=== PATIENT | male | born 1935 | race Caucasian/White ===

== ENCOUNTER 2017-07-26 15:41 | Observation (INO) | payer OTHER ==
[2017-07-26 15:51] VITALS: BMI 30.4
--- NOTE | 2017-07-26 15:53 | PDOC ---
Rapid Medical Evaluation Time Seen by Provider: 07/26/17 15:45 Medical Evaluation: 07/26/17 15:45 Pt. is an 82 y/o M PMH CKD, DM, who presents to the ED with LLE swelling and pain. 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 Currently taking water pills with no relief of symptoms. Pt states had doppler of LLE which was negative for DVT last week. Exam: LLE with 3+ pitting edema. TTP of the calf Orders: labs, ekg, doppler, cxr Pt to proceed to main ED for further evaluation.
[2017-07-26 16:17] LABS: BASO % 0.6 % (0-2.0); EOS % 4.2 % (0-4.5); HEMATOCRIT 28.1 % (35.4-49); HEMOGLOBIN 9.3 GM/dL (11.7-16.9); LYMPH % 22.1 % (8-40); MCH 29.5 pg (25.7-33.7); MCHC 33.2 g/dl (32.0-35.9); MEAN CELL VOLUME 88.8 fl (80-96); MEAN PLT VOLUME 8.5 fl (7.5-11.1); MONO % 9.9 % (3.8-10.2); NEUT % 63.2 % (42.8-82.8); PLATELET COUNT 227 K/MM3 (134-434); RBC 3.17 M/mm3 (4.00-5.60); RDW 15.7 % (11.9-15.9); WHITE BLOOD COUNT 10.1 K/mm3 (4.0-10.0)
[2017-07-26 16:52] LABS: ALBUMIN 3.3 g/dl (3.4-5.0); ANION GAP 9 (8-16); BILIRUBIN,TOTAL 0.1 mg/dL (0.2-1.0); BLOOD UREA NITROGEN 71 mg/dL (7-18); CHLORIDE 108 mmol/L (98-107); CO2 21 mmol/L (21-32); CREATININE 3.2 mg/dL (0.7-1.3); GLUCOSE,RANDOM 115 mg/dL (74-106); POTASSIUM 5.2 mmol/L (3.5-5.1); SGOT/AST 11 U/L (15-37); SGPT/ALT 18 U/L (12-78); SODIUM 138 mmol/L (136-145); TOT PROT 6.3 g/dl (6.4-8.2)
[2017-07-26 16:55] LABS: ALK PHOS 133 U/L (45-117); N-TERMINAL BNP 231.51 pg/ml (5-450)
--- NOTE | 2017-07-26 19:48 | PDOC ---
History of Present Illness - History of Present Illness Initial Comments: 07/26/17 20:05 As per Rapid Med Eval: Patient is an 82 year old male with PMHx of CKD, DM, who presents to the ED with LLE swelling and pain. 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 States he was given aspirin this morning. Currently taking water pills with no relief of symptoms. Pt states had doppler of LLE which was negative for DVT last week. Denies: fever, chills, chest pain. Social Hx: Lives in assisted living facility PCP: Dr. Cora Sharpe 07/27/17 00:08 <Lexii Avila - Last Filed: 07/27/17 00:51> - General History Source: Patient Exam Limitations: No Limitations <Evangelina Chester - Last Filed: 07/28/17 15:08> - General Chief Complaint: Redness To Affected Area Stated Complaint: LT LEG WOUND (PCP SENT) Time Seen by Provider: 07/26/17 15:45 Past History <Lexii Avila - Last Filed: 07/27/17 00:51> - Past Medical History COPD: No Diabetes: Yes Dialysis: No (ckd) HTN: Yes Hypercholesterolemia: Yes - Suicide/Smoking/Psychosocial Hx Smoking History: Never smoked Have you smoked in the past 12 months: No Information on smoking cessation initiated: No Hx Alcohol Use: No Drug/Substance Use Hx: No Substance Use Type: None <Evangelina Chester - Last Filed: 07/28/17 15:08> - Past Medical History Allergies/Adverse Reactions: Allergies Allergy/AdvReac Type Severity Reaction Status Date / Time No Known Allergies Allergy Verified 07/26/17 15:45 Home Medications: Ambulatory Orders Unobtainable 07/27/17 Review of Systems - Review of Systems Comments:: 07/26/17 20:20 GENERAL/CONSTITUTIONAL: No: fever, chills, weakness, loss of appetite. HEAD, EYES, EARS, NOSE AND THROAT: No: change in vision, ear pain, discharge, sore throat, throat swelling. CARDIOVASCULAR: No: chest pain, lightheadedness, palpitations, syncope RESPIRATORY: +some SOB. No: cough, wheezing, hemoptysis, stridor. GASTROINTESTINAL: No: nausea, vomiting, abdominal cramping, diarrhea, rectal bleeding, constipation. GENITOURINARY: No: dysuria, hematuria, frequency, urgency, flank pain. MUSCULOSKELETAL: No: back pain, neck pain, muscle swelling or pain SKIN: +LLE swelling and pain. No: pallor, rash or easy bruising. NEUROLOGIC: No: headache, vertigo, paresthesias, weakness ENDOCRINE: No: unexplained weight gain or loss HEMATOLOGIC/LYMPHATIC: No: anemia, easy bleeding, swelling nodes <Lexii Avila - Last Filed: 07/27/17 00:51> *Physical Exam - Vital Signs Last Vital Signs Temp Pulse Resp BP Pulse Ox 97.9 F 74 18 180/68 100 07/26/17 15:46 07/26/17 15:46 07/26/17 15:46 07/26/17 15:46 07/26/17 15:46 - Physical Exam Comments: 07/26/17 21:08 GENERAL: Awake, alert, asking questions. The patient is in no acute distress. HEAD: Normal with no signs of trauma. EYES: PERRLA, EOMI, sclera anicteric, conjunctiva clear. ENT: Ears normal, nares patent, oropharynx clear without exudates. Moist mucous membranes. NECK: Normal range of motion, supple without lymphadenopathy, JVD, or masses. LUNGS: Breath sounds equal, clear to auscultation bilaterally. No wheezes, and no crackles. HEART:Regular rate and rhythm, normal S1 and S2 without murmur, rub or gallop. ABDOMEN: Soft, nontender, normoactive bowel sounds. No guarding, no rebound. EXTREMITIES: Right leg - s/p BKA. Left leg - very edematous, firm. 3+ pitting edema of left leg to the thigh, tender to palpation in posterior thigh. Normal range of motion, No clubbing or cyanosis. No erythema, warmth, or drainage. NEUROLOGICAL: Cranial nerves II through XII grossly intact. Normal speech. No focal neurological deficits. Ambulatory with no limitations, sensation intact, strength intact. MUSCULOSKELETAL: Back nontender to palpation, no CVA tenderness SKIN: Warm, Dry, no rashes or lesions noted. <Lexii Avila - Last Filed: 07/27/17 00:51> - Vital Signs Last Vital Signs Temp Pulse Resp BP Pulse Ox 97.9 F 74 18 180/68 100 07/26/17 15:46 07/26/17 15:46 07/26/17 15:46 07/26/17 15:46 07/26/17 15:46 <Evangelina Chester - Last Filed: 07/28/17 15:08> ED Treatment Course - LABORATORY CBC & Chemistry Diagram: 07/26/17 16:03 07/26/17 16:03 - ADDITIONAL ORDERS Additional order review: Laboratory Results 07/26/17 07/26/17 16:10 16:03 Sodium 138 Potassium 5.2 H Chloride 108 H Carbon Dioxide 21 Anion Gap 9 BUN 71 H Creatinine 3.2 H Creat Clearance w eGFR 18.69 Random Glucose 115 H Calcium 8.0 L Total Bilirubin 0.1 L AST 11 L ALT 18 Alkaline Phosphatase 133 H Creatine Kinase 122 Troponin I < 0.02 B-Natriuretic Peptide 231.51 Total Protein 6.3 L Albumin 3.3 L 07/26/17 16:03 RBC 3.17 L MCV 88.8 MCHC 33.2 RDW 15.7 MPV 8.5 Neutrophils % 63.2 Lymphocytes % 22.1 Monocytes % 9.9 Eosinophils % 4.2 Basophils % 0.6 - RADIOLOGY Radiograph Interpretation: 07/27/17 00:51 US Left Leg Impression: No DVT is identified involving the left leg. Note is made of a 2.5x 2.3 x1.0 cm popliteal fossa cyst Reported By: Chris Abreu MD 07/26/172202 <Lexii Avila - Last Filed: 07/27/17 00:51> - LABORATORY CBC & Chemistry Diagram: 07/27/17 07:46 07/27/17 07:46 - ADDITIONAL ORDERS Additional order review: Laboratory Results 07/26/17 07/26/17 16:10 16:03 Sodium 138 Potassium 5.2 H Chloride 108 H Carbon Dioxide 21 Anion Gap 9 BUN 71 H Creatinine 3.2 H Creat Clearance w eGFR 18.69 Random Glucose 115 H Calcium 8.0 L Total Bilirubin 0.1 L AST 11 L ALT 18 Alkaline Phosphatase 133 H Creatine Kinase 122 Troponin I < 0.02 B-Natriuretic Peptide 231.51 Total Protein 6.3 L Albumin 3.3 L 07/26/17 16:03 RBC 3.17 L MCV 88.8 MCHC 33.2 RDW 15.7 MPV 8.5 Neutrophils % 63.2 Lymphocytes % 22.1 Monocytes % 9.9 Eosinophils % 4.2 Basophils % 0.6 <Evangelina Chester - Last Filed: 07/28/17 15:08> Medical Decision Making - Medical Decision Making 07/26/17 19:38 Mr Kaufman is an 82 yo M presenting from Dr Sanchez office due to leg swelling which has been progressively worsening over the past 2 weeks S/p duplex which was negative No trauma Laboratory Tests 07/26/17 07/26/17 07/26/17 16:03 16:03 16:10 WBC 10.1 H Hgb 9.3 L Hct 28.1 L Plt Count 227 Neutrophils % 63.2 Lymphocytes % 22.1 Sodium 138 Potassium 5.2 H Chloride 108 H Carbon Dioxide 21 BUN 71 H Creatinine 3.2 H Random Glucose 115 H Creatine Kinase 122 Troponin I < 0.02 B-Natriuretic Peptide 231.51 07/26/17 22:50 Duplex negative Case reviewed with Dr Sanchez Requests Ceftriaxone and Admission Pt asked to elevate leg Will place on observation 07/28/17 15:05 <Evangelina Chester - Last Filed: 07/28/17 15:08> *DC/Admit/Observation/Transfer - Attestations Scribe Attestion: 07/26/17 20:22 Documentation prepared by Lexii Avila, acting as medical device sales representative for Evangelina Chester MD. <Lexii Avila - Last Filed: 07/27/17 00:51> - Discharge Dispostion Decision to Admit order: Yes <Evangelina Chester - Last Filed: 07/28/17 15:08> Diagnosis at time of Disposition: Leg edema, left - Discharge Dispostion Condition at time of disposition: Stable
[2017-07-26 21:17] LABS: URINE APPEARANCE CLEAR; URINE BILIRUBIN NEGATIVE (<2.0 mg/dL); URINE COLOR LTYELLOW; URINE GLUCOSE (UA) 1+ (NEGATIVE); URINE KETONE NEGATIVE (NEGATIVE); URINE LEUK ESTERASE NEGATIVE (NEGATIVE); URINE NITRITE NEGATIVE (NEGATIVE); URINE UROBILINOGEN NEGATIVE mg/dL (0.2-1.0)
[2017-07-26 21:19] LABS: URINE PROTEIN 3+ (NEGATIVE)
[2017-07-26] MEDS ORDERED: CEFTRIAXONE 1 GM in DEXTROSE 5%-WATER - 50 ML IVPB ONE (23:20)
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
[2017-07-27] MEDS ORDERED: CEFTRIAXONE 1 GM/50 ML BAG ONE (00:15)
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
[2017-07-27] MEDS ORDERED: FUROSEMIDE 40 MG/4 ML INJECTABLE VIAL IVPUSH ONE ×2 (02:05→14:00)
[2017-07-27] MEDS: HEPARIN NA (PORCINE) 5,000 UNITS/ML 1ML VIAL SQ SCH ×2 (04:00→10:22)
[2017-07-27] MEDS ORDERED: CEFAZOLIN 1 GM in DEXTROSE 5%-WATER - 50 ML IVPB SCH (04:45)
[2017-07-27] MEDS ORDERED: ceFAZolin SODIUM 1 GM VIAL ONE (05:22)
[2017-07-27] MEDS ORDERED: HEPARIN NA (PORCINE) 5,000 UNITS/ML 1ML VIAL ONE (05:22)
[2017-07-27] MEDS ORDERED: FUROSEMIDE 40 MG/4 ML INJECTABLE VIAL ONE (05:22)
[2017-07-27 07:36] VITALS: PULSE 73; TEMP 98.5
[2017-07-27 08:38] LABS: HEMATOCRIT 27.3 % (35.4-49); HEMOGLOBIN 8.9 GM/dL (11.7-16.9); MCH 29.4 pg (25.7-33.7); MCHC 32.8 g/dl (32.0-35.9); MEAN CELL VOLUME 89.6 fl (80-96); MEAN PLT VOLUME 8.7 fl (7.5-11.1); PLATELET COUNT 208 K/MM3 (134-434); RBC 3.04 M/mm3 (4.00-5.60); RDW 15.4 % (11.9-15.9)
[2017-07-27 09:25] LABS: CHLORIDE 107 mmol/L (98-107); POTASSIUM 5.2 mmol/L (3.5-5.1); SODIUM 139 mmol/L (136-145)
[2017-07-27] MEDS: INSULIN SLIDING SCALE (NOVOLOG) 1 VIAL SQ SCH ×2 (09:41→12:00)
[2017-07-27] MEDS ORDERED: INSULIN REGULAR HUMAN 100 UNITS/ML *VIAL ONE (09:42)
[2017-07-27] MEDS ORDERED: LOSARTAN POTASSIUM 25 MG TABLET PO SCH (10:00)
[2017-07-27] MEDS ORDERED: LOSARTAN POTASSIUM 25 MG TABLET ONE (10:05)
--- NOTE | 2017-07-27 10:11 | DS ---
Physical Exam: SUBJECTIVE: Patient seen and examined OBJECTIVE: Vital Signs Period Temp Pulse Resp BP Sys/Macdonald Pulse Ox Last 24 Hr 97.9 F-98.5 F 73-74 16-18 147-180/68-68 100-100 PHYSICAL EXAM GENERAL: The patient is awake, alert, and fully oriented, in no acute distress. HEAD: Normal with no signs of trauma. EYES: PERRL, extraocular movements intact, sclera anicteric, conjunctiva clear. ENT: Ears normal, nares patent, oropharynx clear without exudates, moist mucous membranes. NECK: Trachea midline, full range of motion, supple. LUNGS: Breath sounds equal, clear to auscultation bilaterally, no wheezes, no crackles, no accessory muscle use. HEART: Regular rate and rhythm, S1, S2 without murmur, rub or gallop. ABDOMEN: Soft, nontender, nondistended, normoactive bowel sounds, no guarding, no rebound, no hepatosplenomegaly, no masses. EXTREMITIES: 2+ pulses, warm, well-perfused, no edema. NEUROLOGICAL: Cranial nerves II through XII grossly intact. Normal speech, gait not observed. PSYCH: Normal mood, normal affect. SKIN: Warm, dry, normal turgor, no rashes or lesions noted. LABS Laboratory Results - last 24 hr 07/26/17 07/26/17 07/26/17 16:03 16:03 16:10 WBC 10.1 H RBC 3.17 L Hgb 9.3 L Hct 28.1 L MCV 88.8 MCH 29.5 MCHC 33.2 RDW 15.7 Plt Count 227 MPV 8.5 Neutrophils % 63.2 Lymphocytes % 22.1 Monocytes % 9.9 Eosinophils % 4.2 Basophils % 0.6 Nucleated RBC % 0 Sodium 138 Potassium 5.2 H Chloride 108 H Carbon Dioxide 21 Anion Gap 9 BUN 71 H Creatinine 3.2 H Creat Clearance w eGFR 18.69 POC Glucometer Random Glucose 115 H Calcium 8.0 L Total Bilirubin 0.1 L AST 11 L ALT 18 Alkaline Phosphatase 133 H Creatine Kinase 122 Troponin I < 0.02 B-Natriuretic Peptide 231.51 Total Protein 6.3 L Albumin 3.3 L Urine Color Urine Appearance Urine pH Ur Specific [place] Urine Protein Urine Glucose (UA) Urine Ketones Urine Blood Urine Nitrite Urine Bilirubin Urine Urobilinogen Ur Leukocyte Esterase Urine WBC (Auto) Urine RBC (Auto) Ur Random Sodium Ur Random Urea Nitrogn Urine Creatinine 07/26/17 07/27/17 07/27/17 21:03 04:42 04:42 WBC RBC Hgb Hct MCV MCH MCHC RDW Plt Count MPV Neutrophils % Lymphocytes % Monocytes % Eosinophils % Basophils % Nucleated RBC % Sodium Potassium Chloride Carbon Dioxide Anion Gap BUN Creatinine Creat Clearance w eGFR POC Glucometer Random Glucose Calcium Total Bilirubin AST ALT Alkaline Phosphatase Creatine Kinase Troponin I B-Natriuretic Peptide Total Protein Albumin Urine Color Ltyellow Urine Appearance Clear Urine pH 5.0 Ur Specific [place] 1.012 Urine Protein 3+ H Urine Glucose (UA) 1+ H Urine Ketones Negative Urine Blood 1+ H Urine Nitrite Negative Urine Bilirubin Negative Urine Urobilinogen Negative Ur Leukocyte Esterase Negative Urine WBC (Auto) 2 Urine RBC (Auto) None Ur Random Sodium 76 Ur Random Urea Nitrogn 589 Urine Creatinine 07/27/17 07/27/17 07/27/17 04:42 07:46 07:46 WBC 10.0 RBC 3.04 L Hgb 8.9 L Hct 27.3 L MCV 89.6 MCH 29.4 MCHC 32.8 RDW 15.4 Plt Count 208 MPV 8.7 Neutrophils % Lymphocytes % Monocytes % Eosinophils % Basophils % Nucleated RBC % Sodium 139 Potassium 5.2 H Chloride 107 Carbon Dioxide Anion Gap BUN Creatinine Creat Clearance w eGFR POC Glucometer Random Glucose Calcium Total Bilirubin AST ALT Alkaline Phosphatase Creatine Kinase Troponin I B-Natriuretic Peptide Total Protein Albumin Urine Color Urine Appearance Urine pH Ur Specific [place] Urine Protein Urine Glucose (UA) Urine Ketones Urine Blood Urine Nitrite Urine Bilirubin Urine Urobilinogen Ur Leukocyte Esterase Urine WBC (Auto) Urine RBC (Auto) Ur Random Sodium Ur Random Urea Nitrogn Urine Creatinine 67.9 07/27/17 09:39 WBC RBC Hgb Hct MCV MCH MCHC RDW Plt Count MPV Neutrophils % Lymphocytes % Monocytes % Eosinophils % Basophils % Nucleated RBC % Sodium Potassium Chloride Carbon Dioxide Anion Gap BUN Creatinine Creat Clearance w eGFR POC Glucometer 213.49423 Random Glucose Calcium Total Bilirubin AST ALT Alkaline Phosphatase Creatine Kinase Troponin I B-Natriuretic Peptide Total Protein Albumin Urine Color Urine Appearance Urine pH Ur Specific [place] Urine Protein Urine Glucose (UA) Urine Ketones Urine Blood Urine Nitrite Urine Bilirubin Urine Urobilinogen Ur Leukocyte Esterase Urine WBC (Auto) Urine RBC (Auto) Ur Random Sodium Ur Random Urea Nitrogn Urine Creatinine HOSPITAL COURSE: Date of Admission:07/26/17 Date of Discharge: 07/27/17 Discharge Summary Reason For Visit: EDEMA OF LEFT LOWER EXTREMITY Current Active Problems Leg edema, left (Acute) Condition: Stable - Instructions Diet, Activity, Other Instructions: Please return to the ED with new, persistent, or worsening symptoms. Please follow-up with your primary care provider within 24 hours. You are leaving against medical advice. Referrals: Jose Alarcon MD [Staff Physician] - (Please follow-up with your primary care provider within 24 hours for further evaluation of your kidney function and your cellulitis. ) Disposition: AGAINST MEDICAL ADVICE - Home Medications Comprehensive Discharge Medication List: Ambulatory Orders Unobtainable 07/27/17
[2017-07-27 10:19] LABS: ANION GAP 12 (8-16); BLOOD UREA NITROGEN 69 mg/dL (7-18); CALCIUM 8.2 mg/dL (8.5-10.1); CO2 20 mmol/L (21-32); CREATININE 3.2 mg/dL (0.7-1.3); GLUCOSE,RANDOM 151 mg/dL (74-106); MAGNESIUM 2.1 mg/dL (1.8-2.4); PHOSPHOROUS 4.9 mg/dL (2.5-4.9)
[2017-07-27 10:27] VITALS: BP 161/87
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
--- NOTE | 2017-07-27 13:23 | EKG ---
Test Reason : Blood Pressure : / mmHG Vent. Rate : 066 BPM Atrial Rate : 066 BPM P-R Int : 260 ms QRS Dur : 088 ms QT Int : 416 ms P-R-T Axes : 064 -21 072 degrees QTc Int : 436 ms SINUS RHYTHM WITH 1ST DEGREE A-V BLOCK OTHERWISE NORMAL ECG NO PREVIOUS ECGS AVAILABLE Confirmed by MAGGIE OCHOA MD ([id number]) on 07/27/2017 1:22:39 PM Referred By: Confirmed By:MAGGIE OCHOA MD
--- NOTE | 2017-07-27 15:49 | CON.ID ---
Consult Consult Specialty:: infectious diseases Referred by:: nixon Reason for Consultation:: cellulitis ofthe leg - History of Present Illness History of Present Illness: 82 year old male with a hx of chronic kidney disease and diabetes mellitus presents to the hospital with L leg swelling and tenderness for 2 weeks duration. He was sent by bag bundler Dr. Cora Haji for evaluation. He had a DVT study done as an outpatient last week which was negative. He states that it became "red" two weeks ago and tender at first on the distal leg, but has since progressed to involved swelling and tenderness around the proximal thigh both anteriorly and posteriorly. Since that prior DVT study study, patient has been given "water pills" by the assisted living facility and he has been self- elevating his leg, none of which relieved his symptoms. Patient lives at [facility]. According to the patient, he was being seen by nephrology for newly diagnosed kidney disease, which he states he was told is chronic, but patient denies knowing about history of kidney disease in the past. Reports that two of his sons after being on dialysis for chronic kidney disease. Denies fevers, chills, chest pain, shortness of breath, orthopnea, dysuria, oliguria. - History Source History Provided By: Patient, Caregiver - Past Medical History Renal/: Yes: Renal Inusuff Endocrine: Yes: Diabetes Mellitus - Past Surgical History Past Surgical History: Yes: Amputation - Alcohol/Substance Use Hx Alcohol Use: No - Smoking History Smoking history: Never smoked Have you smoked in the past 12 months: No Home Medications - Allergies Allergies/Adverse Reactions: Allergies Allergy/AdvReac Type Severity Reaction Status Date / Time No Known Allergies Allergy Verified 07/26/17 15:45 - Home Medications Home Medications: Ambulatory Orders Unobtainable 07/27/17 Review of Systems - Review of Systems Constitutional: reports: No Symptoms Eyes: reports: No Symptoms HENT: reports: No Symptoms Neck: reports: No Symptoms Cardiovascular: reports: No Symptoms Respiratory: reports: No Symptoms Gastrointestinal: reports: No Symptoms Genitourinary: reports: No Symptoms Musculoskeletal: reports: Muscle Pain, Other Integumentary: reports: No Symptoms, Erythema Neurological: reports: No Symptoms Endocrine: reports: No Symptoms Hematology/Lymphatic: reports: No Symptoms Psychiatric: reports: No Symptoms Physical Exam Vital Signs: Vital Signs Temperature 98.5 F 07/27/17 07:29 Pulse Rate 73 07/27/17 10:00 Respiratory Rate 16 07/27/17 10:00 Blood Pressure 161/87 07/27/17 10:00 O2 Sat by Pulse Oximetry (%) 100 07/27/17 10:00 Constitutional: Yes: Well Nourished, Anxious, Mild Distress Eyes: Yes: Conjunctiva Clear HENT: Yes: Atraumatic, Normocephalic Cardiovascular: Yes: Regular Rate and Rhythm Respiratory: Yes: Regular, CTA Bilaterally Gastrointestinal: Yes: Normal Bowel Sounds, Soft Musculoskeletal: Yes: Other Extremities: Yes: Other (R BKA noted, L sided 2+ pitting edema from proximal thigh down to ankle, erythema) Neurological: Yes: Alert, Oriented Psychiatric: Yes: Alert, Oriented Labs: CBC, BMP 07/27/17 07:46 07/27/17 07:46 Imaging - Results Chest X-ray: Report Reviewed, Image Reviewed Ultrasound: Report Reviewed, Image Reviewed Assessment/Plan dm htn lle edema erythema plan will start patient on abx mild cellulitis mostly edema patient is planning to s/o ama if he stay work up for cardiac condition
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
[2017-07-27] MEDS ORDERED: LABETALOL HCL 100 MG TABLET (FP) PO SCH (22:00)
[2017-07-28 09:29] LABS: URINE CREATININE 69.3 mg/dL (20-370)
[2017-07-28 09:33] LABS: RATIO URIN PROTEIN/URIN CREAT 4.11 MG/DL
== END 2017-07-27 16:12 | disposition home or self-care (01) ==
LOC: JER 15:41 → JERBED 23:45
PROVIDERS: ADMIT Internal Medicine; ATTEND Registered Nurse
PROC: 3E03329 Introduction of Other Anti-infective into Peripheral Vein, Percutaneous Approach (ICD-10-PCS; principal; 2017-07-26)
PROC: 3E033GC Introduction of Other Therapeutic Substance into Peripheral Vein, Percutaneous Approach (ICD-10-PCS; 2017-07-26)
DX: L03.116 Cellulitis of left lower limb (principal); R60.0 Localized edema; E11.22 Type 2 diabetes mellitus with diabetic chronic kidney disease; I12.9 Hypertensive chronic kidney disease with stage 1 through stage 4 chronic kidney disease, or unspecified chronic kidney disease; N18.4 Chronic kidney disease, stage 4 (severe); Z79.4 Long term (current) use of insulin; E87.5 Hyperkalemia; F64.8 Other gender identity disorders; N28.1 Cyst of kidney, acquired; Z89.611 Acquired absence of right leg above knee
CPT/HCPCS: 36415; 71046-TC-FY; 76775-TC; 80048; 80053; 81003; 81015; 82550; 82570; 82962; 83735; 83880; 84100; 84156; 84300; 84484; 84540; 85025; 85027; 93005; 93010; 93971-TC; 96365; 96375; 96376; 99285-25; G0378; J1644

== ENCOUNTER 2018-04-20 14:36 | Observation (INO) | payer OTHER ==
--- NOTE | 2018-04-20 15:11 | PDOC ---
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 The patient states that for the last 2 weeks, his L LE has become more swollen with skin tightening and pain in his L calf and posterior knee. He states that over the past few days, he has noted oozing from his legs. He denies fever, chills, CP, SOB, nausea, vomiting, numbness, tingling, and weakness. Past History - Past Medical History Allergies/Adverse Reactions: Allergies Allergy/AdvReac Type Severity Reaction Status Date / Time No Known Allergies Allergy Verified 04/20/18 14:45 Home Medications: Ambulatory Orders ASA - 81 mg PO DAILY 12/12/17 Atorvastatin Ca 20 mg PO HS 12/12/17 Flomax 0.4 mg PO HS 12/12/17 Gabapentin 300 mg PO TID 12/12/17 Glimepiride 2 mg PO DAILY 12/12/17 Lasix 40 mg PO DAILY 12/12/17 Levemir Flextouch 30 units SQ DAILY 12/12/17 Losartan Potassium 50 mg PO DAILY 12/12/17 Tradjenta 5 mg PO DAILY 12/12/17 Voltaren 2 gm TP QID 12/12/17 Zoloft 150 mg PO HS 12/12/17 Prednisone 10 mg PO BID #10 tablet 04/03/18 COPD: No Diabetes: Yes Dialysis: No (ckd) HTN: Yes Hypercholesterolemia: Yes - Suicide/Smoking/Psychosocial Hx Smoking History: Former smoker Have you smoked in the past 12 months: No Information on smoking cessation initiated: No Hx Alcohol Use: No Drug/Substance Use Hx: No Substance Use Type: None Review of Systems - Review of Systems Able to Perform ROS?: Yes Comments:: 04/20/18 15:25 GENERAL/CONSTITUTIONAL: No fever or chills. No weakness. HEAD, EYES, EARS, NOSE AND THROAT: No change in vision. No ear pain or discharge. No sore throat. CARDIOVASCULAR: No chest pain, palpitations, or lightheadedness. RESPIRATORY: No cough, wheezing, shortness of breath, or hemoptysis. GASTROINTESTINAL: No nausea, vomiting, diarrhea, constipation, or abdominal pain. GENITOURINARY: No dysuria, frequency, hematuria, or change in urination. MUSCULOSKELETAL: No joint or muscle swelling or pain. No neck or back pain. SKIN: Positive for rash and swelling. NEUROLOGIC: No headache, numbness, tingling, focal weakness, loss of consciousness, or change in strength/sensation. Is the patient limited Turkmen proficient: No *Physical Exam - Vital Signs Last Vital Signs Temp Pulse Resp BP Pulse Ox 97.5 F L 74 18 124/75 99 04/20/18 14:44 04/20/18 14:44 04/20/18 14:44 04/20/18 14:44 04/20/18 14:44 - Physical Exam Comments: 04/20/18 15:26 GENERAL: Well developed, well nourished. Awake and alert. No acute distress. HEENT: Normocephalic, atraumatic. Hearing grossly normal. Moist mucous membranes. PERRLA, EOMI. No conjunctival pallor. Sclera are non-icteric. Oropharynx is clear. NECK: Supple. Full ROM. No JVD. Carotid pulses 2+ and symmetric, without bruits. No thyromegaly. No lymphadenopathy. CARDIOVASCULAR: Regular rate and rhythm. No murmurs, rubs, or gallops. PULMONARY: No evidence of respiratory distress. Lungs clear to auscultation bilaterally. No wheezing, rales or rhonchi. ABDOMINAL: Soft. Non-tender. Non-distended. No rebound or guarding. GENITOURINARY: No CVA tenderness bilaterally. MUSCULOSKELETAL: Normal range of motion at all joints. No bony deformities or tenderness. EXTREMITIES: No cyanosis. No clubbing. L LE edema with erythematous rash over anterior leg, warm to touch, oozing, w/ skin tightening. TTP over posterior L knee. R BKA. SKIN: Warm and dry. Normal capillary refill. No rashes. No jaundice. NEUROLOGICAL: Alert, awake, appropriate. Cranial nerves 2-12 grossly intact. Normal speech. PSYCHIATRIC: Cooperative. Good eye contact. Appropriate mood and affect. Moderate Sedation - Procedure Monitoring Vital Signs: Procedure Monitoring Vital Signs Temperature 97.5 F L 04/20/18 14:44 Pulse Rate 74 04/20/18 14:44 Respiratory Rate 18 04/20/18 14:44 Blood Pressure 124/75 04/20/18 14:44 O2 Sat by Pulse Oximetry (%) 99 04/20/18 14:44 ED Treatment Course - LABORATORY CBC & Chemistry Diagram: 04/20/18 15:58 04/20/18 15:58 - RADIOLOGY Radiology Studies Ordered: Category Date Time Status DUPLEX VASCUL US-1 LEG [US] Stat Ultrasound 04/20/18 15:00 Ordered Medical Decision Making - Medical Decision Making 04/20/18 15:28 The patient is an 82M with a PMH of DM and L LE wound who presents to the ER with complaints of redness and swelling in his L LE with tenderness on his calf and behind his L knee. Concern for cellulitis vs DVT. Pending labs and US. clerical specialist: Dr. Pandya 04/20/18 17:09 Arterial US shows monophasic flow. No evidence of DVT. Case d/w Dr. Pandya who states that the patient had a laser ablation of his L greater saphenous vein and this may be a reaction to the glue that he used. 04/20/18 17:15 Pt has Hgb of 7.6, dropped from 8.3 last year. Due to pt's medical history, he will require transfusion. Type and screen ordered. Stool occult ordered. 04/20/18 18:[address] Pandya for admission. Hemoccult positive. Dr. Pandya informed. *DC/Admit/Observation/Transfer Diagnosis at time of Disposition: Anemia Qualifiers: Anemia type: other cause Other causes of anemia: other cause, not classified Qualified Code(s): D64.89 - Other specified anemias - Discharge Dispostion Condition at time of disposition: Guarded Decision to Admit order: Yes - Referrals Referrals: Deshawn Ayala MD [Primary Care Provider] - - Patient Instructions - Post Discharge Activity
[2018-04-20 16:41] LABS: BASO % 0.5 % (0-2.0); EOS % 3.5 % (0-4.5); HEMATOCRIT 21.5 % (35.4-49); HEMOGLOBIN 7.4 GM/dL (11.7-16.9); LYMPH % 17.1 % (8-40); MCH 32.2 pg (25.7-33.7); MCHC 34.4 g/dl (32.0-35.9); MEAN CELL VOLUME 93.6 fl (80-96); MEAN PLT VOLUME 8.3 fl (7.5-11.1); MONO % 10.1 % (3.8-10.2); NEUT % 68.8 % (42.8-82.8); PLATELET COUNT 194 K/MM3 (134-434); RDW 16.4 % (11.9-15.9); WHITE BLOOD COUNT 8.9 K/mm3 (4.0-10.0)
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
[2018-04-20 17:05] LABS: PROTHROMBIN TIME (PATIENT) 11.8 SEC (9.7-13.0)
[2018-04-20 17:12] LABS: ALBUMIN 2.9 g/dl (3.4-5.0); ALK PHOS 117 U/L (45-117); ANION GAP 8 MMOL/L (8-16); BILIRUBIN,TOTAL 0.2 mg/dL (0.2-1); BLOOD UREA NITROGEN 79 mg/dL (7-18); CALCIUM 7.2 mg/dL (8.5-10.1); CHLORIDE 109 mmol/L (98-107); CO2 22 mmol/L (21-32); CREATININE 3.6 mg/dL (0.55-1.3); GLUCOSE,RANDOM 109 mg/dL (74-106); POTASSIUM 5.2 mmol/L (3.5-5.1); SGOT/AST 16 U/L (15-37); SGPT/ALT 18 U/L (13-61); SODIUM 139 mmol/L (136-145); TOT PROT 5.6 g/dl (6.4-8.2)
[2018-04-20] MEDS ORDERED: predniSONE 10 MG TABLET (UD) PO ONE (18:00)
[2018-04-20] MEDS ORDERED: predniSONE 10 MG TABLET (UD) ONE (18:08)
[2018-04-20] MEDS ORDERED: diphenhydrAMINE HCL 25 MG CAPSULE (FP) PO ONE ×2 (20:36→20:45)
--- NOTE | 2018-04-20 20:56 | PN ---
Teaching Attending Note Name of Resident: Jenna Villalobos ATTENDING PHYSICIAN STATEMENT I saw and evaluated the patient. I reviewed the resident's note and discussed the case with the resident. I agree with the resident's findings and plan as documented. SUBJECTIVE: Seen and examined; please see resident note for further discussion. Briefly, this is a 82 y/o male with a PMH as discussed who presents from his [facility] for several days of worsening LLE discomfort; 2 weeks ago, then again last tuesday, he had what appears to be an endarterectomy in his LLE (states no stenting) and developed a reaction to one of the surgical substances; he was thus placed on prednisone BID by Dr. aPndya. It continues to itch and has some scabs from him itching it so much. Negative for DVT. 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 We was found to have a Hb of 7.4 which is down a little over 1g from 10 months ago. He denies any melena, hematochezia, hemetemesis, or any bleeding. Of note is that last year he was treated for cellulitis of the LLE and based on the H and P from that time this sounds similar; in the abscence of any white count or fever I am hesisitant to treat for cellulitis at this point, especially with the presumed infectious etiology, known PAD with likely reprofusion given recent procedure, etc. 10 sys ROS done and negative aside from HPI PMH and PSH reviewed Medication reconciliation pending OBJECTIVE: VS, labs, imaging reviewed NAD, AAO, resting comfortably in bed NC AT EOMI PERRLA RRR s1/2 no mgr NT ND +BS CN2-12 wnl, no fnd Normal mood, appropriate affect ASSESSMENT AND PLAN: Patient presents for continued LLE pain likely 2/2 glue at surgical site and anemia; no s/s bleeding but +FOBT with stated recent c-scope 1) Anemia -Not tachy, is lower than he was last year. May be due to CKD progression, but want to r/o other causes. Iron studies, etc. ordered. ER transfused 1 unit; would hold off on further XF. He is asymptomatic in this regard. Given the concern for +FOBT will make him NPO and place him on IV BID protonix and consult GI for further input. Need to get outpatient scope records. Feed when cleared by GI. 2) Leg Pain -Itching, etc. thought to be 2/2 glue used with surgical procedure per Dr. Pandya (in ER note); continue with prednisone. PRN antihis; not likely cellulitis. 3) HTN -Continue home meds 4) HLD -Continue home meds 5) DM -SSI; long acting when eating.
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
[2018-04-20] MEDS: PANTOPRAZOLE SODIUM 40 MG VIAL IVPUSH SCH (23:35)
[2018-04-20] MEDS: INSULIN SLIDING SCALE (NOVOLOG) 1 VIAL SQ SCH (23:35)
[2018-04-21] MEDS: INSULIN SLIDING SCALE (NOVOLOG) 1 VIAL SQ SCH ×3 (05:59→17:17)
[2018-04-21 07:38] LABS: BASO % 0.5 % (0-2.0); EOS % 0.5 % (0-4.5); HEMATOCRIT 24.5 % (35.4-49); HEMOGLOBIN 8.4 GM/dL (11.7-16.9); LYMPH % 13.3 % (8-40); MCH 31.1 pg (25.7-33.7); MCHC 34.3 g/dl (32.0-35.9); MEAN CELL VOLUME 90.8 fl (80-96); MEAN PLT VOLUME 8.3 fl (7.5-11.1); MONO % 7.4 % (3.8-10.2); NEUT % 78.3 % (42.8-82.8); PLATELET COUNT 188 K/MM3 (134-434); RDW 16.5 % (11.9-15.9); WHITE BLOOD COUNT 10.4 K/mm3 (4.0-10.0)
[2018-04-21 08:29] LABS: ALBUMIN 2.9 g/dl (3.4-5.0); ALK PHOS 102 U/L (45-117); ANION GAP 7 MMOL/L (8-16); BILIRUBIN,TOTAL 0.2 mg/dL (0.2-1); BLOOD UREA NITROGEN 74 mg/dL (7-18); CALCIUM 7.3 mg/dL (8.5-10.1); CHLORIDE 111 mmol/L (98-107); CO2 21 mmol/L (21-32); CREATININE 3.4 mg/dL (0.55-1.3); GLUCOSE,RANDOM 112 mg/dL (74-106); PHOSPHOROUS 4.6 mg/dL (2.5-4.9); POTASSIUM 5.5 mmol/L (3.5-5.1); SGOT/AST 8 U/L (15-37); SGPT/ALT 13 U/L (13-61); SODIUM 139 mmol/L (136-145); TOT PROT 5.5 g/dl (6.4-8.2)
[2018-04-21] MEDS ORDERED: PT OWN MED DRAWER 7, Y5N ONE (09:50)
[2018-04-21] MEDS: PANTOPRAZOLE SODIUM 40 MG VIAL IVPUSH SCH (09:54)
[2018-04-21] MEDS ORDERED: FLUoxetine HCL 20 MG CAPSULE (FP) PO SCH (10:00)
[2018-04-21] MEDS ORDERED: predniSONE 10 MG TABLET (UD) PO SCH (10:00)
[2018-04-21] MEDS ORDERED: LOSARTAN POTASSIUM 25 MG TABLET PO SCH (10:00)
[2018-04-21] MEDS ORDERED: DOCUSATE SODIUM 100 MG CAPSULE (FP) PO SCH (10:00)
[2018-04-21] MEDS ORDERED: LOSARTAN POTASSIUM 50 MG, LOSARTAN POTASSIUM 25 MG PO SCH (10:00)
[2018-04-21] MEDS ORDERED: ASPIRIN COATED 81 MG TABLET.EC PO SCH (10:00)
--- NOTE | 2018-04-21 10:19 | CON.GI ---
Consult Consult Specialty:: GI Referred by:: Hospitalist Service Reason for Consultation:: Anemia and Guaiac Positive stool - History of Present Illness Chief Complaint: LLE swelling History of Present Illness: 82M admitted for evaluation of LLE Swelling. Asked to evaluate anemia. In review of [employer], It appears as though he has anemia from at least 07/15. he wa guaiac + from specimen sent. He denies focal GI complaints. There has been no overt melena, rectal bleeding or change in bowel habits/stool caliber. He believes tat he remotely had a colonoscopy. There is no family history of colorectal cancer orother GI malignancy. - History Source History Provided By: Patient, Medical Record Limitations to Obtaining History: No Limitations - Past Medical History Cardio/Vascular: Yes: Other (PVD) Renal/: Yes: Renal Inusuff Endocrine: Yes: Diabetes Mellitus Dermatology: Yes: Psoriasis (DM II) - Past Surgical History Past Surgical History: Yes: Amputation (rt. bka) - Alcohol/Substance Use Hx Alcohol Use: No History of Substance Use: reports: None - Smoking History Smoking history: Former smoker Have you smoked in the past 12 months: No - Social History Usual Living Arrangement: Assisted Living () ADL: Support Services Place of : [facility] History of Recent Travel: No Home Medications - Allergies Allergies/Adverse Reactions: Allergies Allergy/AdvReac Type Severity Reaction Status Date / Time No Known Allergies Allergy Verified 04/20/18 14:45 - Home Medications Home Medications: Ambulatory Orders Aspirin Coated [Ecotrin -] 81 mg PO DAILY 04/21/18 Atorvastatin Ca [Lipitor] 20 mg PO HS 04/21/18 Bacitracin - [Bacitracin Topical Ointment -] 1 applic TP DAILY 04/21/18 Clotrimazole/Betamet Diprop [Lotrisone Cream (Small Tube)] 1 applic TP BID 04/21 Docusate Sodium 200 mg PO DAILY 04/21/18 Ergocalciferol (Vitamin D2) [Vitamin D2] 50,000 unit PO WEEKLY 04/21/18 Ferrous Gluconate [Ferate] 240 mg PO DAILY 04/21/18 Fluoxetine HCl 20 mg PO DAILY 04/21/18 Fluticasone Propionate [Flovent Diskus] 50 mcg IH BID 04/21/18 Furosemide 80 mg PO DAILY 04/21/18 Gabapentin 300 mg PO TID 04/21/18 Glimepiride 2 mg PO DAILY 04/21/18 Insulin Detemir [Levemir Flextouch] 30 unit SQ DAILY 04/21/18 Insulin Sliding Scale [Novolog Vial Sliding Scale -] See Protocol SQ ACHS Linagliptin [Tradjenta] 5 mg PO DAILY 04/21/18 Losartan Potassium 75 mg PO DAILY 04/21/18 Sertraline HCl 150 mg PO HS 04/21/18 Tamsulosin HCl 0.4 mg PO HS 04/21/18 Family Disease History - Family Disease History Family Disease History: Other: Father ( 78: "old age" ), Mother ( 70's: CVA), Brother (2: 1 : 78: unlear cause 1 Kidney failure), Son (3, 1 : kidney failure) Other Family History: No family history of colorectal cancer or other GI malignancy Review of Systems - Review of Systems Constitutional: denies: Fever, Unintentional Wgt. Loss Cardiovascular: denies: Chest Pain Respiratory: denies: Cough Gastrointestinal: denies: Abdominal Pain, Constipation, Diarrhea, Dysphagia, Indigestion, Melena, Nausea, Rectal Bleeding, Vomiting, Vomiting Blood Physical Exam-GI Vital Signs: Vital Signs Temperature 98.1 F 04/21/18 04:00 Pulse Rate 76 04/21/18 04:00 Respiratory Rate 18 04/21/18 04:00 Blood Pressure 136/78 04/21/18 04:00 O2 Sat by Pulse Oximetry (%) 96 04/21/18 04:00 Constitutional: Yes: Calm Eyes: No: Sclera Icterus Cardiovascular: Yes: Other (? of prmature beats) Respiratory: Yes: CTA Bilaterally Gastrointestinal Inspection: Yes: Other (protuberant abdomen (patient states that it has appeared this way for some time). No: Distention, Scars ...Auscultate: Yes: Normoactive Bowel Sounds ...Palpate: Yes: Soft ...Percussion: No: Tympanitic ...Rectal Exam: Yes: Other (No external lesions no masses, light brown stool in rectal vault, guaiac positive) Extremities: Yes: Other (right BKA) Neurological: Yes: Alert Labs: CBC, BMP 04/21/18 07:00 04/21/18 07:00 INR, PTT INR 1.00 (0.83-1.09) 04/20/18 15:58 Problem List - Problems (1) Anemia Assessment/Plan: With guaiac positive stool. I explained this to Mr. Kaufman and explained that to look for sources of GI blood loss such as bleedig blood vessels, PUD, polyps and cancers such as colon cancer , EGD/Colonoscopy can be undertaken. We discussed potential risks of the the procedure like but not limited to bleeding, perforation requiring surgery to repair, infection, sedation medication effects all of which could be potentially life threatening. He declined the procedures. I explained that undiagnosed colon cancer could lead to other complications such as continued cleeding, obstruction of colon, spread of the disease. He still declined. Consider checking an EKG if not done this admission. Prior EKG 07/15 revealed sinus rhythm with 1st degree AV block. Upon auscultation, I may have heard pauses / premature beats. While Mr. Kaufman' protuberant abdomen may be his body habitus, check Abd US to exclude ascites If Mr. Kaufman changes his mind, please recall. If ascites is noted on US, please recall. Code(s): D64.9 - ANEMIA, UNSPECIFIED Qualifiers: Anemia type: other cause Other causes of anemia: other cause, not classified Qualified Code(s): D64.89 - Other specified anemias
[2018-04-21 14:59] VITALS: BP 146/80; PULSE 103; TEMP 97.7
--- NOTE | 2018-04-21 15:03 | EKG ---
Test Reason : Blood Pressure : / mmHG Vent. Rate : 070 BPM Atrial Rate : 094 BPM P-R Int : 248 ms QRS Dur : 090 ms QT Int : 398 ms P-R-T Axes : 033 -27 056 degrees QTc Int : 429 ms SINUS RHYTHM WITH 1ST DEGREE A-V BLOCK WITH PREMATURE SUPRAVENTRICULAR COMPLEXES WHEN COMPARED WITH ECG OF 26-JUL-2017 22:56, PREMATURE SUPRAVENTRICULAR COMPLEXES ARE NOW PRESENT Confirmed by ANNA NICOLE, DREW ([id number]) on 04/21/2018 3:02:53 PM Referred By: JANINE ROMAN Confirmed By:DREW CASTILLO MD
--- NOTE | 2018-04-21 15:32 | PN ---
Teaching Attending Note Name of Resident: Ale Laboy ATTENDING PHYSICIAN STATEMENT I saw and evaluated the patient. I reviewed the resident's note and discussed the case with the resident. I agree with the resident's findings and plan as documented. SUBJECTIVE: No fever or chills , has no abd pain. No URIARTE , no palpitations. no PC . no cough OBJECTIVE: NAD. CV: regularly irregular. no MRG. Lungs: CATB ext :R BKA. L leg with erythema, and scratch torres on leg. no TTP. DP 2+ , PT 1 + . warm foot and NL range of motion Abd: obese, soft, NT, Nd , NL BS . neg shifting dulness Rectal done by Dr. laboy, with no masses, no fissures, and no stool on Examiner finger. ASSESSMENT AND PLAN: 82 y/o man with h/o CKd, venous insufficiency, PVd, s/p L greater saphenus ablation 3 weeks ago, with another procedure 1 week later withresultant allergic reaction to one of the surgical meterials, HLP, DM, R BKA, HTN, who presented with L leg itching and pain. 1- L leg erythema , and pain. pain resolved completely. itching and erythema decreased. due to allergic reaction. no signs of cellulitis will give a course of 5 days of steroids decreased flow on arterial US . dr. ellis was informed by ER Md and recommended no procedure 2- Abd distention : no ascitis or tenderness, or constipation. US reviewed. 3- Hyperkalemia: due to CKD and being on ARb. repeat 4.9. dc ARB and start norvasc, until he follows with renal , Dr. Sanchez. EKG with 1st degree and premature complexes . Will notify Dr. Baptiste of the change 4- HTN: as above , norvasc in place of ARB 5- DM : resume his home regimen of levemir and SSi at md 6- normocytic anemia , due to CKD and iron def. ferritin is 27, rest of iron studie spending . OB + . declined colo. f/u with GI as out p t iron as out pt . rectal as above dispo : md back to [place] today
--- NOTE | 2018-04-21 15:35 | DS ---
Physical Exam: SUBJECTIVE: Patient seen and examined OBJECTIVE: Vital Signs Period Temp Pulse Resp BP Sys/Macdonald Pulse Ox Last 24 Hr 97.7 F-98.4 F 71-103 18-20 135-146/64-82 96-100 PHYSICAL EXAM GENERAL: The patient is awake, alert, and fully oriented, in no acute distress. HEAD: Normal with no signs of trauma. EYES: PEERLA; no scleral icterus ; EOMI NECK: no JVD; no lymphadenopathy LUNGS:CTA B/L; no rales, rhonchi or wheezing HEART: Regular rate and rhythm, S1, S2 without murmur, rub or gallop. ABDOMEN: Soft, nontender, nondistended, normoactive bowel sounds, no guarding, no rebound, no hepatosplenomegaly, no masses. EXTREMITIES:left extremity: red however not warm to touch; right BKA NEUROLOGICAL: Cranial nerves II through XII grossly intact. Normal speech, gait not observed. PSYCH: Normal mood, normal affect. SKIN: Warm, dry, normal turgor, no rashes or lesions noted. LABS Laboratory Results - last 24 hr 04/20/18 04/20/18 04/20/18 15:58 15:58 15:58 WBC 8.9 RBC 2.30 L Hgb 7.4 L Hct 21.5 L D MCV 93.6 MCH 32.2 MCHC 34.4 RDW 16.4 H Plt Count 194 MPV 8.3 Absolute Neuts (auto) 6.1 Neutrophils % 68.8 Lymphocytes % 17.1 D Monocytes % 10.1 Eosinophils % 3.5 Basophils % 0.5 Nucleated RBC % 0 Retic Count PT with INR 11.80 INR 1.00 Sodium 139 Potassium 5.2 H Chloride 109 H Carbon Dioxide 22 Anion Gap 8 BUN 79 H Creatinine 3.6 H Creat Clearance w eGFR 16.31 POC Glucometer Random Glucose 109 H Calcium 7.2 L Phosphorus Magnesium Ferritin Total Bilirubin 0.2 AST 16 ALT 18 Alkaline Phosphatase 117 Total Protein 5.6 L Albumin 2.9 L Vitamin B12 Serum Folate Stool Occult Blood Blood Type Antibody Screen Crossmatch 04/20/18 04/20/18 04/20/18 17:27 20:11 20:40 WBC RBC Hgb Hct MCV MCH MCHC RDW Plt Count MPV Absolute Neuts (auto) Neutrophils % Lymphocytes % Monocytes % Eosinophils % Basophils % Nucleated RBC % Retic Count PT with INR INR Sodium Potassium Chloride Carbon Dioxide Anion Gap BUN Creatinine Creat Clearance w eGFR POC Glucometer 230 Random Glucose Calcium Phosphorus Magnesium Ferritin Total Bilirubin AST ALT Alkaline Phosphatase Total Protein Albumin Vitamin B12 Serum Folate Stool Occult Blood Positive Blood Type O POSITIVE Antibody Screen Negative Crossmatch See Detail 04/20/18 04/20/18 04/20/18 21:20 21:20 21:20 WBC RBC Hgb Hct MCV MCH MCHC RDW Plt Count MPV Absolute Neuts (auto) Neutrophils % Lymphocytes % Monocytes % Eosinophils % Basophils % Nucleated RBC % Retic Count 3.47 H PT with INR INR Sodium Potassium Chloride Carbon Dioxide Anion Gap BUN Creatinine Creat Clearance w eGFR POC Glucometer Random Glucose Calcium Phosphorus Magnesium Ferritin 27.9 Total Bilirubin AST ALT Alkaline Phosphatase Total Protein Albumin Vitamin B12 462 Serum Folate 24 H Stool Occult Blood Blood Type O POSITIVE Antibody Screen Crossmatch 04/20/18 04/21/18 04/21/18 23:32 05:48 07:00 WBC 10.4 H RBC 2.70 L Hgb 8.4 L Hct 24.5 L MCV 90.8 MCH 31.1 MCHC 34.3 RDW 16.5 H Plt Count 188 MPV 8.3 Absolute Neuts (auto) 8.2 H Neutrophils % 78.3 Lymphocytes % 13.3 D Monocytes % 7.4 Eosinophils % 0.5 D Basophils % 0.5 Nucleated RBC % 0 Retic Count PT with INR INR Sodium Potassium Chloride Carbon Dioxide Anion Gap BUN Creatinine Creat Clearance w eGFR POC Glucometer 225 121 Random Glucose Calcium Phosphorus Magnesium Ferritin Total Bilirubin AST ALT Alkaline Phosphatase Total Protein Albumin Vitamin B12 Serum Folate Stool Occult Blood Blood Type Antibody Screen Crossmatch 04/21/18 04/21/18 04/21/18 07:00 11:38 12:52 WBC RBC Hgb Hct MCV MCH MCHC RDW Plt Count MPV Absolute Neuts (auto) Neutrophils % Lymphocytes % Monocytes % Eosinophils % Basophils % Nucleated RBC % Retic Count PT with INR INR Sodium 139 Potassium 5.5 H 4.9 Chloride 111 H Carbon Dioxide 21 Anion Gap 7 L BUN 74 H Creatinine 3.4 H Creat Clearance w eGFR 17.43 POC Glucometer 142 Random Glucose 112 H Calcium 7.3 L Phosphorus 4.6 Magnesium 2.0 Ferritin Total Bilirubin 0.2 AST 8 L ALT 13 Alkaline Phosphatase 102 Total Protein 5.5 L Albumin 2.9 L Vitamin B12 Serum Folate Stool Occult Blood Blood Type Antibody Screen Crossmatch HOSPITAL COURSE: Date of Admission:04/20/18 82 y/o male with PMH of IDDM, HTN, CKD< r leg amputation presented to the ED with left lower extremity redness/pain- of note 2 weeks ago patient underwent a left saphenous vein ablation and had been having pain in the leg in addition to itchiness on his leg w. then he underwent another procedure and continued to have itchiness and pain so he came into the Ed- was incidentally found to have a Hgb of 7.4 and was fecal occult positive. the did a doppler study which did not show evidence of DVT however,. it did show decreased monophasic flow in posterior tibial, femoral, artery. patient was treated with prednisone and his allergic reaction got better. he was seen by GI and refused colonoscopy. his potassium was also found to be eleavted at 5.5- we held patients losartan and replaced it with amlodipine 10mg. he was stable for d/c with all his follow ups / Date of Discharge: 04/21/18 Minutes to complete discharge: 39 Discharge Summary Reason For Visit: ANEMAI,PERIPHERAL VENOUS INSUFFICIENCY Current Active Problems Anemia (Acute) Condition: Stable - Instructions Diet, Activity, Other Instructions: You came to the hospital with complaints of lower left leg pain and tenderness, which was most likely due to an allergic reaction from the procedure you had last week with Dr. Pandya and incidentally was found to have a low hemoglobin level and there was blood in your stool. In addition, your potassium level was found to be elevated. Please follow up with you primary care physician within one week and have your potassium level checked Please follow up with Dr Pandya within a week Please follow up with your kidney doctor within one week We would also like you to follow up with Dr. Mao, the balance clerk given the low hemoglobin level and blood in your stool Please resume all of your home medications except: -we are replacing your Losartan with another blood pressure medication called amlodipine 10mg as losartan can cause an increase in your potassium. further recommendation per Dr. Sanchez -we are prescribing you another 5 day course of prednisone 10mg to be taken two times a day for 5 days *if you begin to experience any chest pain,s trouble breathing, leg pain, nausea /vomiting please return to the emergency room immediately Referrals: Андрей Mao DO [Staff Physician] - 1 Week Cora Sharpe MD [Staff Physician] - 1 Week Roger Pandya MD [Non Staff, Medical] - 1 Week Deshawn Ayala MD [Primary Care Provider] - 1 Week [facility]position: [facility] - Home Medications Comprehensive Discharge Medication List: Ambulatory Orders Amlodipine Besylate [Norvasc -] 10 mg PO DAILY #30 tablet 04/21/18 Aspirin Coated [Ecotrin -] 81 mg PO DAILY 04/21/18 Atorvastatin Ca [Lipitor] 20 mg PO HS 04/21/18 Bacitracin - [Bacitracin Topical Ointment -] 1 applic TP DAILY 04/21/18 Clotrimazole/Betamet Diprop [Lotrisone -] 1 applic TP BID 04/21/18 Docusate Sodium 200 mg PO DAILY 04/21/18 Ergocalciferol (Vitamin D2) [Vitamin D2] 50,000 unit PO WEEKLY 04/21/18 Ferrous Gluconate [Ferate] 240 mg PO DAILY 04/21/18 Fluoxetine HCl 20 mg PO DAILY 04/21/18 Fluticasone Propionate [Flovent Diskus] 50 mcg IH BID 04/21/18 Furosemide 80 mg PO DAILY 04/21/18 Gabapentin 300 mg PO TID 04/21/18 Glimepiride 2 mg PO DAILY 04/21/18 Insulin Detemir [Levemir Flextouch] 30 unit SQ DAILY 04/21/18 Linagliptin [Tradjenta] 5 mg PO DAILY 04/21/18 Sertraline HCl 150 mg PO HS 04/21/18 Tamsulosin HCl 0.4 mg PO HS 04/21/18 predniSONE [Deltasone -] 10 mg PO BID 5 Days #10 tab 04/21/18 Problem List - Problems (1) Anemia Code(s): D64.9 - ANEMIA, UNSPECIFIED Qualifiers: Anemia type: other cause Other causes of anemia: other cause, not classified Qualified Code(s): D64.89 - Other specified anemias (2) Leg edema, left Code(s): R60.0 - LOCALIZED EDEMA (3) Venous (peripheral) insufficiency Code(s): I87.2 - VENOUS INSUFFICIENCY (CHRONIC) (PERIPHERAL) This patient is new to me today: Yes Date on this admission: 04/21/18 Emergency Visit: Yes ED Registration Date: 04/20/18 Care time: The patient presented to the Emergency Department on the above date and was hospitalized for further evaluation of their emergent condition. Critical Care patient: No - Discharge Referral Referred to [facility] Yes Physician Referral: Inderjit Mao DO (GI)
[2018-04-21] MEDS ORDERED: INSULIN (NOVOLOG) ASPART 100 UNITS/ML 10ML VIAL ONE (17:16)
[2018-04-21] MEDS ORDERED: ATORVASTATIN CA 20 MG TABLET (FP) PO SCH (22:00)
[2018-04-21] MEDS ORDERED: TAMSULOSIN HCL 0.4 MG CAP PO SCH (22:00)
[2018-04-21] MEDS ORDERED: SERTRALINE HCL 150 MG PO SCH (22:00)
[2018-04-22 04:15] LABS: SERUM IRON SATURATION 13 % (15-55); TOTAL IRON BINDING CAPACITY 250 ug/dL (250-450); UIBC 217 ug/dL (111-343)
== END 2018-04-21 21:00 ==
LOC: JER 14:36 → JERBED 18:19 → J6S 21:11
PROVIDERS: ADMIT Internal Medicine; ATTEND Internal Medicine
PROC: 3E033GC Introduction of Other Therapeutic Substance into Peripheral Vein, Percutaneous Approach (ICD-10-PCS; principal; 2018-04-20)
PROC: 3E013VG Introduction of Insulin into Subcutaneous Tissue, Percutaneous Approach (ICD-10-PCS; 2018-04-20)
DX: D64.89 Other specified anemias (principal); E11.22 Type 2 diabetes mellitus with diabetic chronic kidney disease; I12.9 Hypertensive chronic kidney disease with stage 1 through stage 4 chronic kidney disease, or unspecified chronic kidney disease; N18.9 Chronic kidney disease, unspecified; Z79.4 Long term (current) use of insulin; Z79.84 Long term (current) use of oral hypoglycemic drugs; N28.1 Cyst of kidney, acquired; Z89.511 Acquired absence of right leg below knee; E87.5 Hyperkalemia; Z87.891 Personal history of nicotine dependence; Z79.82 Long term (current) use of aspirin; I73.9 Peripheral vascular disease, unspecified
CPT/HCPCS: 36415; 36430; 76700-TC; 80053; 82272; 82607; 82728; 82746; 82962; 83540; 83550; 83735; 84100; 84132; 85025; 85044; 85610; 86850; 86900; 86901; 86922; 93005; 93010; 93926-TC; 93971-TC; 96372; 96374; 99283-25; G0378; P9038; P9058

== ENCOUNTER 2018-06-21 16:15 | Emergency (ER) | payer OTHER ==
[2018-06-21 16:45] VITALS: BP 164/74; PULSE 81; TEMP 98; BMI 32.3
[2018-06-21 17:39] LABS: BASO % 0.9 % (0-2.0); EOS % 5.2 % (0-4.5); HEMATOCRIT 24.4 % (35.4-49); HEMOGLOBIN 8.1 GM/dL (11.7-16.9); LYMPH % 17.9 % (8-40); MCH 31.4 pg (25.7-33.7); MCHC 33.3 g/dl (32.0-35.9); MEAN CELL VOLUME 94.3 fl (80-96); MEAN PLT VOLUME 8.1 fl (7.5-11.1); MONO % 9.2 % (3.8-10.2); NEUT % 66.8 % (42.8-82.8); PLATELET COUNT 232 K/MM3 (134-434); RBC 2.59 M/mm3 (4.00-5.60); RDW 15.6 % (11.9-15.9); WHITE BLOOD COUNT 9.6 K/mm3 (4.0-10.0)
--- NOTE | 2018-06-21 17:50 | PDOC ---
Documentation entered by Alyssia Jin SCRIBE, acting as scribe for Evangelina Chester MD. Evangelina Chester MD: This documentation has been prepared by the Annabel walker Amanda, SCRIBE, under my direction and personally reviewed by me in its entirety. I confirm that the documentation accurately reflects all work, treatment, procedures, and medical decision making performed by me. Attending Attestation - Resident Resident Name: Pepper Harrington - ED Attending Attestation I have performed the following: I have examined & evaluated the patient, The case was reviewed & discussed with the resident, I agree w/resident's findings & plan, Exceptions are as noted - HPI HPI: 06/21/18 17:35 The patient is a 82 year old male, with a significant past medical history of who presents to the emergency department with low hemoglobin today. He was seen as an outpatient for endoscopy/colonoscopy He had bloodwork drawn and patient was called today and was told that his hemoglobin is low He states his stools are dark (non bloody), however he takes iron supplements. He denies abdominal pain, nausea or vomiting He denies dizziness, lightheadedness, weakness, chest pain Allergies: NKDA 06/21/18 17:48 - Physicial Exam PE: 06/21/18 17:33 GENERAL: The patient is in no acute distress. ENT: Ears normal, nares patent, oropharynx clear without exudates. Moist mucous membranes. No tonsillar enlargement, no exudates NECK: Normal range of motion, supple, no nuchal rigidity (+) LAD LUNGS: Breath sounds equal, clear to auscultation bilaterally. No wheezes, and no crackles. HEART:Regular rate and rhythm, normal S1 and S2 without murmur, rub or gallop. ABDOMEN: Soft, nontender, normoactive bowel sounds. EXTREMITIES: Normal range of motion, no edema. NEUROLOGICAL: Cranial nerves II through XII grossly intact. Normal speech. No focal neurological deficits. SKIN: Warm, Dry, normal turgor, no rashes or lesions noted. - Medical Decision Making 06/21/18 17:50 Pt sent to the ER for anemia Will do: Labs Guiaic repeated Will re assess 06/21/18 17:55 Laboratory Tests 04/21/18 06/21/18 06/21/18 07:00 17:00 17:00 WBC 10.4 H 9.6 Hgb 8.4 L 8.1 L Hct 24.5 L 24.4 L Plt Count 188 232 D INR 1.01 Stool Occult Blood 06/21/18 17:00 WBC Hgb Hct Plt Count INR Stool Occult Blood Negative Will contact Dr Andrews He recommends contacting pmd Call placed to PMD Pt can be discharged to home Can follow up with pmd 06/21/18 18:25
--- NOTE | 2018-06-21 17:50 | PDOC ---
History of Present Illness - General Chief Complaint: Blood Transfusion Stated Complaint: ABNORMAL LABS Time Seen by Provider: 06/21/18 16:48 History Source: Patient Exam Limitations: No Limitations - History of Present Illness Initial Comments: 06/21/18 17:45 Pt is an 82yo M with PMH of IDDM, CKD, HTN presenting to ED for low H/H. Per pt , he went to his GI doctor and was told today that his H/H was low and to come to the hospital. Pt does not have any complaints. Upon questioning, pt endorses dark stools however he does take iron pills. He Denies palpitations, SOB, chest pain, abdominal pain, n/v/d, syncope, palpitations, headache, back pain. Not on ACs. PMD: Jamie GI: DiGiorno PMH: see hpi PSH: Kristina DAY Meds: see med rec Allergies: nkda Past History - Past Medical History Allergies/Adverse Reactions: Allergies Allergy/AdvReac Type Severity Reaction Status Date / Time No Known Allergies Allergy Verified 06/21/18 16:45 Home Medications: Ambulatory Orders Amlodipine Besylate [Norvasc -] 10 mg PO DAILY #30 tablet 04/21/18 Aspirin Coated [Ecotrin -] 81 mg PO DAILY 04/21/18 Atorvastatin Ca [Lipitor] 20 mg PO HS 04/21/18 Bacitracin - [Bacitracin Topical Ointment -] 1 applic TP DAILY 04/21/18 Clotrimazole/Betamet Diprop [Lotrisone -] 1 applic TP BID 04/21/18 Docusate Sodium 200 mg PO DAILY 04/21/18 Ergocalciferol (Vitamin D2) [Vitamin D2] 50,000 unit PO WEEKLY 04/21/18 Ferrous Gluconate [Ferate] 240 mg PO DAILY 04/21/18 Fluoxetine HCl 20 mg PO DAILY 04/21/18 Fluticasone Propionate [Flovent Diskus] 50 mcg IH BID 04/21/18 Furosemide 80 mg PO DAILY 04/21/18 Gabapentin 300 mg PO TID 04/21/18 Glimepiride 2 mg PO DAILY 04/21/18 Insulin Detemir [Levemir Flextouch] 30 unit SQ DAILY 04/21/18 Linagliptin [Tradjenta] 5 mg PO DAILY 04/21/18 Sertraline HCl 150 mg PO HS 04/21/18 Tamsulosin HCl 0.4 mg PO HS 04/21/18 predniSONE [Deltasone -] 10 mg PO BID 5 Days #10 tab 04/21/18 Prednisone 10 mg PO BID #10 tablet MDD 2 04/24/18 COPD: No Diabetes: Yes Dialysis: No (ckd) Disorders: Yes (CKD) HTN: Yes Hypercholesterolemia: Yes - Suicide/Smoking/Psychosocial Hx Smoking History: Never smoked Have you smoked in the past 12 months: No Hx Alcohol Use: No Drug/Substance Use Hx: No Substance Use Type: None Hx Substance Use Treatment: No Review of Systems - Review of Systems Constitutional: No: Chills, Diaphoresis, Fever, Weakness HEENTM: No: Symptoms Reported Respiratory: No: Shortness of Breath Cardiac (ROS): No: Chest Pain, Lightheadedness, Palpitations, Syncope ABD/GI: No: Constipated, Nausea, Rectal Bleeding, Vomiting, Abdominal cramping : No: Burning, Dysuria, Hematuria Musculoskeletal: No: Back Pain, Joint Pain, Muscle Pain Integumentary: No: Bruising, Erythema Neurological: No: Headache, Numbness, Tingling *Physical Exam - Vital Signs Last Vital Signs Temp Pulse Resp BP Pulse Ox 98.0 F 81 18 164/74 99 06/21/18 16:43 06/21/18 16:43 06/21/18 16:43 06/21/18 16:43 06/21/18 16:43 - Physical Exam General Appearance: Yes: Nourished, Appropriately Dressed. No: Apparent Distress HEENT: positive: EOMI, ALBERTINA, Pale Conjunctivae Neck: positive: Trachea midline, Supple. negative: Lymphadenopathy (R), Lymphadenopathy (L) Respiratory/Chest: positive: Lungs Clear, Normal Breath Sounds. negative: Crackles, Wheezing Cardiovascular: positive: Regular Rhythm, Regular Rate, S1, S2. negative: Edema , JVD, Murmur Vascular Pulses: Carotid (R): 2+, Carotid (L): 2+, Doralis-Pedis (L): 2+ Gastrointestinal/Abdominal: positive: Normal Bowel Sounds, Soft, Protuberent. negative: Tender, Hernia Rectal Exam: positive: heme negative stool, normal rectal tone. negative: melena, heme positive stool Musculoskeletal: negative: CVA Tenderness Extremity: positive: Normal Capillary Refill, Swelling (slight edema of LLE). 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 Per pt , he went to his GI doctor and was told today that his H/H was low and to come to the hospital. Pt does not have any complaints. Upon questioning, pt endorses dark stools however he does take iron pills. He Denies palpitations, SOB, chest pain, abdominal pain, n/v/d, syncope, palpitations, headache, back pain. Not on ACs. Vitals: wnl PE: pale conjuctiva. No gross blood on glove. abdomen distended, non tender, normal breath and heart sounds, slight edema of LLE. R AKA. DDx includes but not limited to anemia (GI loss v. MAIDA v. vitamin deficiency), malignancy, electrolyte/metabolic disturbance -labs, ts, coag -guaiac Labs show hgb 8.1 (baseline since dc April 21, 2018). All other labs normal/ at baseline. Guaiac negative. Called Dr. Mao's office. Per office, pt had hgb of 7.5. Called PMD office and informed them of hgb at baseline. Agree with plan to DC pt home. Pt does not require transfusion at this time. Pt does not have any complaints. Vitals normal. Safe for dc home. Pt has pmd and gi f/u. Pt agrees to plan for dc. Given return precautions. Awaiting transport *DC/Admit/Observation/Transfer Diagnosis at time of Disposition: Anemia Qualifiers: Anemia type: unspecified type Qualified Code(s): D64.9 - Anemia, unspecified - Discharge Dispostion Disposition: RETIREMENT FACILITY Condition at time of disposition: Good Decision to Admit order: No - Referrals Referrals: Deshawn Ayala MD [Primary Care Provider] - Андрей Mao DO [Staff Physician] - - Patient Instructions Printed Discharge Instructions: Anemia Additional Instructions: You were seen in the emergency room because your hemoglobin was low. Your hemoglobin test here shows that it is at your baseline (8.1). All of your other tests were normal. Please follow up with your primary care doctor tomorrow and follow up with your GI doctor. Come back to the emergency room if you feel lightheaded, you have difficulty breathing, you notice blood in the stool, you pass out or if any new concerning symptom develops. Thank you - Post Discharge Activity
[2018-06-21 17:54] LABS: INR 1.01 (0.83-1.09); PROTHROMBIN TIME (PATIENT) 11.9 SEC (9.7-13.0)
[2018-06-21 18:05] LABS: ALBUMIN 3.5 g/dl (3.4-5.0); ALK PHOS 142 U/L (45-117); ANION GAP 9 MMOL/L (8-16); BILIRUBIN,TOTAL 0.2 mg/dL (0.2-1); BLOOD UREA NITROGEN 54 mg/dL (7-18); CALCIUM 8.6 mg/dL (8.5-10.1); CHLORIDE 107 mmol/L (98-107); CO2 23 mmol/L (21-32); CREATININE 2.8 mg/dL (0.55-1.3); GLUCOSE,RANDOM 92 mg/dL (74-106); MAGNESIUM 2.1 mg/dL (1.8-2.4); POTASSIUM 4.3 mmol/L (3.5-5.1); SGOT/AST 15 U/L (15-37); SGPT/ALT 19 U/L (13-61); SODIUM 140 mmol/L (136-145); TOT PROT 6.4 g/dl (6.4-8.2)
[2018-06-21 19:42] LABS: ANISOCYTOSIS 2+
[2018-06-21 19:43] LABS: PLATELET ESTIMATE ADEQUATE
== END 2018-06-21 20:15 ==
LOC: JER 16:15
DX: D64.9 Anemia, unspecified (principal); I12.9 Hypertensive chronic kidney disease with stage 1 through stage 4 chronic kidney disease, or unspecified chronic kidney disease; E11.22 Type 2 diabetes mellitus with diabetic chronic kidney disease; N18.9 Chronic kidney disease, unspecified
CPT/HCPCS: 36415; 80053; 82272; 83735; 85025; 85610; 86850; 86900; 86901; 99282-25

== ENCOUNTER 2018-07-11 10:31 | Day surgery (SDC) | payer OTHER ==
[2018-07-11 08:48] VITALS: BMI 32.1
[2018-07-11 11:43] LABS: HEMATOCRIT 27.9 % (35.4-49); HEMOGLOBIN 9.1 GM/dL (11.7-16.9); MCH 29.5 pg (25.7-33.7); MCHC 32.6 g/dl (32.0-35.9); MEAN CELL VOLUME 90.5 fl (80-96); MEAN PLT VOLUME 7.6 fl (7.5-11.1); PLATELET COUNT 214 K/MM3 (134-434); RBC 3.08 M/mm3 (4.00-5.60); RDW 14.6 % (11.9-15.9); WHITE BLOOD COUNT 8.1 K/mm3 (4.0-10.0)
[2018-07-11 12:03] LABS: CALCIUM 8.4 mg/dL (8.5-10.1); CREATININE 2.9 mg/dL (0.55-1.3); POTASSIUM 3.8 mmol/L (3.5-5.1)
[2018-07-11 13:34] VITALS: TEMP 97.4
[2018-07-11 14:38] VITALS: BP 167/68; PULSE 72
--- NOTE | 2018-07-11 17:23 | PN ---
Progress Note (short form) - Note Progress Note: Advised just now by endo nurse that Mr. Kaufman fell at around 2pm while in the recovery area near his chair s/p colonoscopy. It was not wittnessed and the patient refused to be seen in the ER. he stated that he slid down onto the floor. I was unaware of the event up until now and therefore could not evaluate him subsequently. I advised Endoscopy nurse to call his place of residence and let them know regarding the fall.
--- NOTE | 2018-07-14 10:46 | PATH ---
Surgical Pathology Report Patient Name: LEDA RAMOS [facility]. Rec. #: [id number] /Age/Gender: 1935 (Age: 82) / M Account: [id number] Location: [facility]-ENDOSCOPY Taken: 07/11/2018 Received: 07/12/2018 Reported: 07/14/2018 Physicians: Inderjit Mao D.O. Specimen(s) Received A: LIPOMA IN ILEOCECAL VALVE BX B: ILEOCECAL VALVE POLYP BX C: RIGHT COLON POLYP (2) BX D: SIGMOID POLYP (2) BX Clinical History Occult GI bleed. Post-op diagnosis: Diverticulosis, polyps, lipoma, ileocecal valve Final Diagnosis A. ILEOCECAL VALVE, LIPOMA, BIOPSY: COLONIC MUCOSA WITH SUBMUCOSAL ADIPOSE TISSUE, CONSISTENT WITH LIPOMA. B. ILEOCECAL VALVE, POLYP (2): GRANULATION TISSUE POLYP. FOCAL ACTIVE ILEITIS. C. RIGHT COLON, POLYP (2), BIOPSY: TUBULAR ADENOMA (1). HYPERPLASTIC POLYP (1). D. SIGMOID COLON, BIOPSY: TUBULAR ADENOMAS (2). Electronically Signed Luzma Carrington M.D. Gross Description A. Received in formalin, labeled, "lipoma in ileocecal valve" three pieces of yellow-de la cruz tissue ranging from 0.3-0.4 cm in greatest dimension. Entirely submitted in one cassette. B. Received in formalin, labeled, "ileocecal valve polyp (2)" are two pieces of yellow-de la cruz tissue measuring 0.3 cm and 0.5 cm in greatest dimension. Entirely submitted in one cassette. C. Received in formalin, labeled, "right colon polyp (2)" are two pieces of light de la cruz tissue measuring 0.3 cm and 0.4 cm in greatest dimension. Entirely submitted in one cassette. D. Received in formalin, labeled, "sigmoid polyp (2)" are two pieces of light de la cruz tissue each up to 0.3 cm in greatest dimension. Entirely submitted in one cassette. AE/07/12/2018 ebram/07/12/2018
== END 2018-07-11 16:00 | disposition home or self-care (01) ==
LOC: JASU-ENDO 10:31
PROVIDERS: ATTEND Internal Medicine Gastroenterology
PROC: 0DBN8ZX Excision of Sigmoid Colon, Via Natural or Artificial Opening Endoscopic, Diagnostic (ICD-10-PCS; 2018-07-11)
PROC: 0DBC8ZX Excision of Ileocecal Valve, Via Natural or Artificial Opening Endoscopic, Diagnostic (ICD-10-PCS; 2018-07-11)
PROC: 0DBH8ZX Excision of Cecum, Via Natural or Artificial Opening Endoscopic, Diagnostic (ICD-10-PCS; 2018-07-11)
PROC: 0DBK8ZX Excision of Ascending Colon, Via Natural or Artificial Opening Endoscopic, Diagnostic (ICD-10-PCS; principal; 2018-07-11 11:00)
DX: D17.5 Benign lipomatous neoplasm of intra-abdominal organs (principal); K57.30 Diverticulosis of large intestine without perforation or abscess without bleeding; D12.0 Benign neoplasm of cecum; D12.2 Benign neoplasm of ascending colon; D12.5 Benign neoplasm of sigmoid colon; D64.9 Anemia, unspecified; R19.5 Other fecal abnormalities; K52.9 Noninfective gastroenteritis and colitis, unspecified; K63.5 Polyp of colon
CPT/HCPCS: 36415; 80048; 85027; 88305-TC

== ENCOUNTER 2018-07-25 21:47 | Inpatient (IN) | payer OTHER | END 2018-07-28 16:14 | disposition home or self-care (01) | LOC: JERBED 22:55 → JER 21:47 → J7W 07-26 11:06 ==

== ENCOUNTER 2018-09-11 13:49 | Emergency (ER) | payer OTHER ==
[2018-09-11 14:20] VITALS: BMI 28.8
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
--- NOTE | 2018-09-11 16:25 | PDOC ---
Documentation entered by Curtis Dejesus SCRIBE, acting as scribe for Edith Merchant MD. Edith Merchant MD: This documentation has been prepared by the Oleg walker Joel, SCRIBE, under my direction and personally reviewed by me in its entirety. I confirm that the documentation accurately reflects all work, treatment, procedures, and medical decision making performed by me. Attending Attestation - Resident Resident Name: AguilarFlorian - ED Attending Attestation I have performed the following: I have examined & evaluated the patient, The case was reviewed & discussed with the resident, I agree w/resident's findings & plan, Exceptions are as noted - HPI HPI: 09/11/18 16:04 The patient is an 83 year old male with a significant PMH of right BKA, CKD, HTN , DM, PVD, hyperlipidemia, and anemia who presents to the emergency department for evaluation of RLE stump swelling with associated redness and weeping since last night. He denies prior history of similar symptoms. He denies fevers and chills. The patient denies chest pain, shortness of breath, headache and dizziness. Denies nausea, vomit, diarrhea and constipation. Denies dysuria, frequency, urgency and hematuria. Allergies: Iodine / Iodide Past surgical history: Right BKA. Left knee surgery. Social history: No reported cigarette, alcohol, or drug use. PCP: Dr. Ayala - Physicial Exam PE: GENERAL: Awake, alert, and fully oriented, in no acute distress HEAD: No signs of trauma EYES: PERRLA, EOMI, sclera anicteric, conjunctiva clear ENT: Auricles normal inspection, hearing grossly normal, nares patent, oropharynx clear without exudates. Moist mucosa NECK: Normal ROM, supple, no lymphadenopathy, JVD, or masses LUNGS: Breath sounds equal, clear to auscultation bilaterally. No wheezes, and no crackles HEART: Regular rate and rhythm, normal S1 and S2, no murmurs, rubs or gallops ABDOMEN: Soft, nontender, normoactive bowel sounds. No guarding, no rebound. No masses EXTREMITIES: +Erythema to the R anterior thigh and the R BKA stump, with warmth and tenderness. Remainder of extremities with normal range of motion. No clubbing or cyanosis. No cords, erythema, or tenderness NEUROLOGICAL: Cranial nerves II through XII grossly intact. Normal speech. Motor and sensation intact SKIN: Warm, dry, normal turgor, no rashes or lesions noted. - Medical Decision Making Pt with cellulitis at the stump as well as of the R anterior thigh. Will place on PO bactrim and keflex. Cellulitis was outlined so that it can be monitored in the senior care. If it is extending, will have to return for IV abx.
[2018-09-11 16:49] LABS: BASO % 0.6 % (0-2.0); EOS % 3.6 % (0-4.5); HEMATOCRIT 28.4 % (35.4-49); HEMOGLOBIN 9.5 GM/dL (11.7-16.9); LYMPH % 16.6 % (8-40); MCH 28.6 pg (25.7-33.7); MCHC 33.3 g/dl (32.0-35.9); MEAN CELL VOLUME 85.9 fl (80-96); MEAN PLT VOLUME 7.5 fl (7.5-11.1); MONO % 10.2 % (3.8-10.2); PLATELET COUNT 212 K/MM3 (134-434); RBC 3.31 M/mm3 (4.00-5.60); RDW 16.1 % (11.9-15.9); WHITE BLOOD COUNT 9.8 K/mm3 (4.0-10.0)
[2018-09-11 17:06] LABS: ALBUMIN 3.2 g/dl (3.4-5.0); BILIRUBIN,TOTAL 0.2 mg/dL (0.2-1); BLOOD UREA NITROGEN 68.7 mg/dL (7-18); CALCIUM 8.2 mg/dL (8.5-10.1); CREATININE 3.5 mg/dL (0.55-1.3); POTASSIUM 4.3 mmol/L (3.5-5.1); TOT PROT 6.1 g/dl (6.4-8.2)
[2018-09-11 18:44] VITALS: BP 168/94; PULSE 82; TEMP 98.4
[2018-09-11 19:56] LABS: PLATELET ESTIMATE ADEQUATE
== END 2018-09-11 22:01 ==
LOC: JER 13:49
DX: L03.115 Cellulitis of right lower limb (principal); Z89.511 Acquired absence of right leg below knee; D64.9 Anemia, unspecified; I12.9 Hypertensive chronic kidney disease with stage 1 through stage 4 chronic kidney disease, or unspecified chronic kidney disease; E11.22 Type 2 diabetes mellitus with diabetic chronic kidney disease; N18.9 Chronic kidney disease, unspecified; Z79.4 Long term (current) use of insulin; E78.00 Pure hypercholesterolemia, unspecified; I73.9 Peripheral vascular disease, unspecified
CPT/HCPCS: 36415; 80053; 85025; 93971-TC; 99284-25

== ENCOUNTER 2019-04-16 20:24 | Inpatient (IN) | payer OTHER ==
--- NOTE | 2019-04-16 20:57 | PDOC ---
History of Present Illness - History of Present Illness Initial Comments: HPI: 83yo M with PMH of HTN, HLD, DM, CKD, anemia sent by [facility] for low hemoglobin. Patient states he had his [id number] routine blood work performed this morning and was told a half hour prior to arrival that his numbers were low. Patient states he is at his baseline. No dizziness, chest pain, or shortness of breath. With generalized weakness, though unsure if this is different from baseline. Denies hematemesis. Has had black stools but believes it is because of his medications. States he is on ASA. No anticoagulant therapy. Had a transfusion about one year ago at [facility] because of his "kidney." Denies history of GI bleed. Colonoscopy last year did not show any bleeding. No fevers or chills. PCP: Dr. Ayala ROS: Constitutional: no fever, no chills HEENT: no throat pain, no dysphagia Cardiovascular: no chest pain, no palpitations Respiratory: no cough, no shortness of breath Gastrointestinal: no abdominal pain, no nausea Genitourinary: no dysuria, no hematuria Musculoskeletal: no myalgia, no arthralgia Skin: no rash, no itching Neurologic: no headache, +weakness Psych: no agitation, no anxiety PE: General: Awake, alert, and fully oriented, in no acute distress Head: No signs of trauma Eyes: EOMI, sclera anicteric ENT: Moist mucus membranes Neck: Normal ROM, supple Lungs: Lungs clear, Normal breath sounds Cardio: Regular rhythm, S1 and S2 present Abdomen: Soft, nontender Extremities: Normal range of motion, Distal pulses present SKIN: Warm, Dry, normal turgor Neurologic: Cranial nerves II through XII grossly intact. Normal speech Rectal: The skin is without erythema or induration. No external hemorrhoids, fissures, skin tags, warts, or discharge. Sphincter tone normal. There are no masses palpated on digital exam. Stool appears brown. Pipeline Operator, Juan David Martin, present during entire rectal exam ED Course/MDM: DDX including but not limited to anemia of chronic disease, GI bleed, metabolic derangement Labs 04/16/19 20:56 CBC WBC 9.9 K/mm3 (4.0-10.0) 04/16/19 21:16 RBC 2.29 M/mm3 (4.00-5.60) L 04/16/19 21:16 Hgb 7.1 GM/dL (11.7-16.9) L 04/16/19 21:16 Hct 21.6 % (35.4-49) L D 04/16/19 21:16 MCV 94.3 fl (80-96) 04/16/19 21:16 MCH 31.2 pg (25.7-33.7) 04/16/19 21:16 MCHC 33.0 g/dl (32.0-35.9) 04/16/19 21:16 RDW 14.5 % (11.9-15.9) 04/16/19 21:16 Plt Count 230 K/MM3 (134-434) 04/16/19 21:16 MPV 7.4 fl (7.5-11.1) L 04/16/19 21:16 Absolute Neuts (auto) 7.4 K/mm3 (1.5-8.0) 04/16/19 21:16 Neutrophils % 74.3 % (42.8-82.8) 04/16/19 21:16 Lymphocytes % 12.7 % (8-40) D 04/16/19 21:16 Monocytes % 8.9 % (3.8-10.2) 04/16/19 21:16 Eosinophils % 3.5 % (0-4.5) 04/16/19 21:16 Basophils % 0.6 % (0-2.0) 04/16/19 21:16 Nucleated RBC % 0 % (0-0) 04/16/19 21:16 No leuckoytosis Hgb 7.1, down from 9.5 in August 2018 1u PRBC ordered Plan for admission as patient is anemic with clinically significant symptom of weakness that is likely secondary to anemia 04/16/19 21:52 EKG: rate 70, QTc 494. sinus, twi in aVL and flattening of t waves in V5/V6 when compared to previous EKG performed on 07/27/18 CMP Sodium 138 mmol/L (136-145) 04/16/19 21:16 Potassium 3.8 mmol/L (3.5-5.1) 04/16/19 21:16 Chloride 109 mmol/L (98-107) H 04/16/19 21:16 Carbon Dioxide 19 mmol/L (21-32) L 04/16/19 21:16 Anion Gap 10 MMOL/L (8-16) 04/16/19 21:16 BUN 63.4 mg/dL (7-18) H 04/16/19 21:16 Creatinine 5.0 mg/dL (0.55-1.3) H 04/16/19 21:16 Est GFR (CKD-EPI)AfAm 11.47 04/16/19 21:16 Est GFR (CKD-EPI)NonAf 9.90 04/16/19 21:16 Random Glucose 257 mg/dL (74-106) H 04/16/19 21:16 Calcium 7.4 mg/dL (8.5-10.1) L 04/16/19 21:16 Total Bilirubin 0.4 mg/dL (0.2-1) 04/16/19 21:16 AST 15 U/L (15-37) 04/16/19 21:16 ALT 17 U/L (13-61) 04/16/19 21:16 Alkaline Phosphatase 170 U/L (45-117) H 04/16/19 21:16 Total Protein 5.8 g/dl (6.4-8.2) L 04/16/19 21:16 Albumin 2.9 g/dl (3.4-5.0) L 04/16/19 21:16 Electrolytes unremarkable Cr 5.0, up from 3.5 in August 2018 CXR without acute change from previous, my impression MB sent 04/16/19 22:[address] Ibrahima Chacon who accepted patient for admission under Dr. Mccormick 04/16/19 22:38 <Edith Botello - Last Filed: 04/17/19 18:45> <Walt Owen - Last Filed: 04/27/19 01:39> - General Chief Complaint: Blood Transfusion Stated Complaint: ABNORMAL LABS, BLOOD TRANSUSION NEEDED Time Seen by Provider: 04/16/19 20:38 Past History - Past Medical History Anemia: Yes COPD: No Diabetes: Yes Dialysis: No (ckd) Disorders: Yes (CKD) HTN: Yes Hypercholesterolemia: Yes - Surgical History Orthopedic Surgery: Yes (r bka, l knee) - Immunization History Immunization Up to Date: No - Psycho Social/Smoking Cessation Hx Smoking History: Never smoked Have you smoked in the past 12 months: No Hx Alcohol Use: No Drug/Substance Use Hx: No Substance Use Type: None Hx Substance Use Treatment: No <RosmeryEdith - Last Filed: 04/17/19 18:45> <Walt Owen - Last Filed: 04/27/19 01:39> - Past Medical History Allergies/Adverse Reactions: Allergies Allergy/AdvReac Type Severity Reaction Status Date / Time Iodine and Iodide Containing Allergy Rash Verified 09/11/18 14:20 Produc Home Medications: Ambulatory Orders Amlodipine Besylate [Norvasc -] 10 mg PO DAILY #30 tablet 04/21/18 Aspirin Coated [Ecotrin -] 81 mg PO DAILY 04/21/18 Atorvastatin Ca [Lipitor] 20 mg PO HS 04/21/18 Docusate Sodium 200 mg PO DAILY 04/21/18 Ergocalciferol (Vitamin D2) [Vitamin D2] 50,000 unit PO WEEKLY 04/21/18 Ferrous Gluconate [Ferate] 27 mg PO DAILY 04/21/18 Fluoxetine HCl 20 mg PO DAILY 04/21/18 Fluticasone Propionate [Flovent Diskus] 50 mcg IH BID 04/21/18 Furosemide 80 mg PO DAILY 04/21/18 Gabapentin 300 mg PO TID 04/21/18 Glimepiride 2 mg PO DAILY 04/21/18 Linagliptin [Tradjenta] 5 mg PO DAILY 04/21/18 Sertraline HCl 150 mg PO HS 04/21/18 Tamsulosin HCl 0.4 mg PO HS 04/21/18 Guaifenesin [Siltussin SA] 200 mg PO PRN PRN 07/25/18 Multivitamins [Multivit ([facility] Formulary)] 1 tab PO DAILY 07/25/18 Sildenafil Citrate [Viagra] 50 mg PO PRN PRN 07/25/18 Silver Sulfadiazine [Ssd] 400 gm TP DAILY 07/25/18 Omeprazole 40 mg PO DAILY #30 tab.rap 04/20/19 *Physical Exam - Vital Signs Last Vital Signs Temp Pulse Resp BP Pulse Ox 97.7 F 72 18 164/58 L 99 04/16/19 20:38 04/16/19 20:34 04/16/19 20:34 04/16/19 20:34 04/16/19 20:34 <RosmeryEdith - Last Filed: 04/17/19 18:45> - Vital Signs Last Vital Signs Temp Pulse Resp BP Pulse Ox 98 F 82 20 105/62 98 04/20/19 10:00 04/20/19 10:00 04/20/19 10:00 04/20/19 10:00 04/19/19 15:45 <Walt Owen - Last Filed: 04/27/19 01:39> ED Treatment Course - LABORATORY CBC & Chemistry Diagram: 04/17/19 05:30 04/17/19 05:30 <Edith Botello - Last Filed: 04/17/19 18:45> - LABORATORY CBC & Chemistry Diagram: 04/20/19 06:49 04/20/19 06:49 - ADDITIONAL ORDERS Additional order review: 04/16/19 21:16 RBC 2.29 L MCV 94.3 MCHC 33.0 RDW 14.5 MPV 7.4 L Neutrophils % 74.3 Lymphocytes % 12.7 D Monocytes % 8.9 Eosinophils % 3.5 Basophils % 0.6 - Medications Given in the ED: ED Medications Discontinued Medications Generic Name Dose Route Start Last Admin Trade Name Freq PRN Reason Stop Dose Admin Amlodipine Besylate 10 mg 04/17/19 11:30 04/20/19 10:26 Norvasc - PO 10 mg DAILY NATHALIE Administration Atorvastatin Calcium 20 mg 04/17/19 22:00 04/19/19 21:49 Lipitor - PO 20 mg HS NATHALIE Administration Bisacodyl 20 mg 04/18/19 16:00 04/18/19 17:00 Dulcolax - PO 04/18/19 16:01 20 mg ONCE ONE Administration Dextrose 25 gm 04/18/19 07:55 04/18/19 11:33 D50w (Vial) - IVPUSH 04/18/19 07:56 Not Given NOW ONE Dextrose 25 gm 04/18/19 09:00 04/18/19 10:14 D50w (Vial) - IVPUSH 04/18/19 09:01 25 gm NOW ONE Administration Dextrose 25 gm 04/18/19 10:20 04/18/19 11:34 D50w (Vial) - IVPUSH 04/18/19 10:21 Not Given NOW ONE Docusate Sodium 200 mg 04/17/19 10:00 04/20/19 10:26 Colace - PO 200 mg DAILY NATHALIE Administration Epoetin Lui 20,000 unit 04/17/19 16:30 04/17/19 18:06 Procrit - SQ 04/17/19 16:31 20,000 unit ONCE ONE Administration Epoetin Lui 20,000 unit 04/20/19 12:27 04/20/19 13:30 Procrit - SQ 04/20/19 12:28 20,000 unit ONCE ONE Administration Ferrous Sulfate 325 mg 04/19/19 22:00 04/20/19 10:28 Feosol - PO 325 mg BID NATHALIE Administration Fluoxetine HCl 20 mg 04/17/19 10:00 04/20/19 10:28 Prozac - PO 20 mg DAILY NATHALIE Administration Furosemide 40 mg 04/18/19 00:45 04/20/19 10:24 Lasix Injection - IVPUSH 40 mg DAILY NATHALIE Administration Gabapentin 300 mg 04/17/19 06:00 04/20/19 13:30 Neurontin - PO 300 mg TID NATHALIE Administration Sodium Chloride 1,000 mls @ 42 mls/hr 04/17/19 01:00 04/17/19 02:01 Normal Saline - IV 42 mls/hr ASDIR [facility] Administration Insulin Aspart 1 vial 04/17/19 07:00 04/20/19 06:49 Novolog Vial Sliding Scale - SQ Not Given [facility] Protocol Insulin Detemir 30 units 04/17/19 22:00 04/19/19 21:57 Levemir Vial SQ 30 units HS [facility] Administration Mometasone Furoate 1 puff 04/17/19 22:00 04/19/19 21:51 Asmanex 220mcg - IH 1 puff HS [facility] Administration Multivitamins/Minerals/Vitamin C 1 tab 04/17/19 10:00 04/20/19 10:28 Tab-A-Vit - PO 1 tab DAILY NATHALIE Administration Pantoprazole Sodium 40 mg 04/19/19 15:15 04/20/19 10:28 Protonix - PO 40 mg DAILY NATHALIE Administration Polyethylene Glycol/Electrolytes 4,000 ml 04/18/19 16:00 04/18/19 17:00 Golytely Solution - PO 04/18/19 16:01 4,000 ml ONCE ONE Administration Sertraline HCl 150 mg 02/18/20 22:00 04/19/19 21:50 Zoloft - PO 150 mg HS NATHALIE Administration Tamsulosin HCl 0.4 mg 04/17/19 22:00 04/19/19 21:50 Flomax - PO 0.4 mg HS NATHALIE Administration <Walt Owen - Last Filed: 04/27/19 01:39> Medical Decision Making - Medical Decision Making 04/27/19 01:38 Guaic negative Hemodynamiccally stable Chronic anemia on hd <Walt Owen - Last Filed: 04/27/19 01:39> Discharge - Discharge Information Problems reviewed: Yes - Admission Yes <Edith Botello - Last Filed: 04/17/19 18:45> <Walt Owen - Last Filed: 04/27/19 01:39> - Discharge Information Clinical Impression/Diagnosis: Anemia Qualifiers: Anemia type: unspecified type Qualified Code(s): D64.9 - Anemia, unspecified Condition: Guarded Disposition: HOME
[2019-04-16 21:33] LABS: BASO % 0.6 % (0-2.0); EOS % 3.5 % (0-4.5); HEMATOCRIT 21.6 % (35.4-49); HEMOGLOBIN 7.1 GM/dL (11.7-16.9); LYMPH % 12.7 % (8-40); MCH 31.2 pg (25.7-33.7); MEAN CELL VOLUME 94.3 fl (80-96); MEAN PLT VOLUME 7.4 fl (7.5-11.1); MONO % 8.9 % (3.8-10.2); NEUT % 74.3 % (42.8-82.8); PLATELET COUNT 230 K/MM3 (134-434); RBC 2.29 M/mm3 (4.00-5.60); RDW 14.5 % (11.9-15.9); WHITE BLOOD COUNT 9.9 K/mm3 (4.0-10.0)
[2019-04-16 21:53] LABS: PROTHROMBIN TIME (PATIENT) 11.8 SEC (9.7-13.0)
[2019-04-16 22:09] LABS: ALBUMIN 2.9 g/dl (3.4-5.0); BILIRUBIN,TOTAL 0.4 mg/dL (0.2-1); BLOOD UREA NITROGEN 63.4 mg/dL (7-18); CALCIUM 7.4 mg/dL (8.5-10.1); POTASSIUM 3.8 mmol/L (3.5-5.1); TOT PROT 5.8 g/dl (6.4-8.2)
--- NOTE | 2019-04-16 22:22 | PN ---
Teaching Attending Note Name of Resident: Estefany Chacon ATTENDING PHYSICIAN STATEMENT I saw and evaluated the patient. I reviewed the resident's note and discussed the case with the resident. I agree with the resident's findings and plan as documented. SUBJECTIVE: 83Y/O M W IDDM, CKD 5, HTN, PVD, R. BKA, history of anemia and blood transfusions in the past, sent from anemia on the routine labs, from [facility] living with low H&H and black stool. He has no cardiopulmonary complaints at this time. Otherwise, the patient reports he feels well, denies chest pain, shortness of breath, near syncope, or any other complaint. The patient reports daily use of ASA, otherwise denies the use of blood thinners. OBJECTIVE: CBCD WBC 9.9 K/mm3 (4.0-10.0) 04/16/19 21:16 RBC 2.29 M/mm3 (4.00-5.60) L 04/16/19 21:16 Hgb 7.1 GM/dL (11.7-16.9) L 04/16/19 21:16 Hct 21.6 % (35.4-49) L D 04/16/19 21:16 MCV 94.3 fl (80-96) 04/16/19 21:16 MCHC 33.0 g/dl (32.0-35.9) 04/16/19 21:16 RDW 14.5 % (11.9-15.9) 04/16/19 21:16 Plt Count 230 K/MM3 (134-434) 04/16/19 21:16 MPV 7.4 fl (7.5-11.1) L 04/16/19 21:16 CMP Sodium 138 mmol/L (136-145) 04/16/19 21:16 Potassium 3.8 mmol/L (3.5-5.1) 04/16/19 21:16 Chloride 109 mmol/L (98-107) H 04/16/19 21:16 Carbon Dioxide 19 mmol/L (21-32) L 04/16/19 21:16 Anion Gap 10 MMOL/L (8-16) 04/16/19 21:16 BUN 63.4 mg/dL (7-18) H 04/16/19 21:16 Creatinine 5.0 mg/dL (0.55-1.3) H 04/16/19 21:16 Calcium 7.4 mg/dL (8.5-10.1) L 04/16/19 21:16 Total Bilirubin 0.4 mg/dL (0.2-1) 04/16/19 21:16 AST 15 U/L (15-37) 04/16/19 21:16 ALT 17 U/L (13-61) 04/16/19 21:16 Alkaline Phosphatase 170 U/L (45-117) H 04/16/19 21:16 Total Protein 5.8 g/dl (6.4-8.2) L 04/16/19 21:16 Albumin 2.9 g/dl (3.4-5.0) L 04/16/19 21:16 ASSESSMENT AND PLAN: 83Y/O M W IDDM, CKD 5, HTN, PVD, R. BKA, history of anemia and blood transfusions in the past, sent from anemia on the routine labs, from [place] assisted living with low H&H and black stool. He has no cardiopulmonary complaints at this time. normocytic, normochromic anemia, likely in the setting of CKD 5, Will transfuse. will discuss with nephrology giving Epo, will send retic count, Iron studies. Will send FOBT and if no recetn colonoscopy can get it done. will C/W rest of home medication at this time
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
--- NOTE | 2019-04-16 22:34 | PDOC ---
Documentation entered by Yana Dean SCRIBE, acting as scribe for Walt Owen DO. Walt Owen DO: This documentation has been prepared by the mingoibeJermaine Lincy, SCRIBE, under my direction and personally reviewed by me in its entirety. I confirm that the documentation accurately reflects all work, treatment, procedures, and medical decision making performed by me. Attending Attestation - Resident Resident Name: Edith Botello - HPI HPI: 04/16/19 21:10 83-year-old male with a past medical history significant for IDDM, CKD, HTN, PVD , R. BKA presents from [facility] with low H&H and black stool. Otherwise, the patient reports he feels well, denies chest pain, shortness of breath, near syncope, or any other complaint. The patient reports daily use of ASA, otherwise denies the use of blood thinners. - Physicial Exam PE: 04/16/19 21:12 GENERAL: Well-appearing, No apparent distress. HEENT: Normocephalic, atraumatic. PERRL, EOM intact. CARDIOVASCULAR: Normal S1, S2. Regular rate and rhythm. PULMONARY: Clear to auscultation bilaterally. ABDOMEN: Soft, non-distended, non-tender. Guiac negative brown stool EXTREMITIES: +R. BKA No gross deformities. SKIN: No pallor. Warm, dry. No rash NEUROLOGICAL: No focal neurological deficits. 04/16/19 22:33 - Medical Decision Making 04/16/19 21:13 A/P: 83-year-old male presents for blood transfusion. Will recheck H & H in ED, will check guaiac, will plan for transfusion if indicated vs. [facility]. 04/16/19 22:06 The patients hemoglobin is 7.1, guaiac negative. Last hemoglobin in August was 9, there is a 2 point drop. Will admit and transfuse 1 unit, given that the patient has a generalized weakness. [facility] given that the patients PCP doesnt admit here. Agree with residents' notes and medical management. 04/16/19 22:30 EKG: Normal sinus rhythm at 70 Normal axis and intervals Normal QT prolongation with normal QTC Nonspecific T wave inversion, one on the aVL. No ischemic changes No change from prior. 04/16/19 22:33
[2019-04-17] MEDS ORDERED: SODIUM CHLORIDE 1,000 ML IV SCH ×2 (00:15→01:00)
[2019-04-17 02:25] LABS: IRON SERUM 42 ug/dL (50-175); TOTAL IRON BINDING CAPACITY 317 ug/dL (250-450)
[2019-04-17] MEDS ORDERED: GABAPENTIN 100 MG CAPSULE ONE ×2 (06:48→21:47)
[2019-04-17] MEDS: INSULIN SLIDING SCALE (NOVOLOG) 1 VIAL SQ SCH ×4 (07:04→22:50)
[2019-04-17] MEDS: GABAPENTIN 300 MG CAPSULE PO SCH ×3 (07:04→21:54)
[2019-04-17 07:33] LABS: BASO % 0.5 % (0-2.0); HEMATOCRIT 24.2 % (35.4-49); HEMOGLOBIN 8.2 GM/dL (11.7-16.9); LYMPH % 16.1 % (8-40); MCH 31.2 pg (25.7-33.7); MCHC 33.9 g/dl (32.0-35.9); MEAN CELL VOLUME 92.1 fl (80-96); MEAN PLT VOLUME 7.7 fl (7.5-11.1); MONO % 9.3 % (3.8-10.2); NEUT % 70.1 % (42.8-82.8); PLATELET COUNT 222 K/MM3 (134-434); RBC 2.63 M/mm3 (4.00-5.60); RDW 14.8 % (11.9-15.9); WHITE BLOOD COUNT 10.7 K/mm3 (4.0-10.0)
[2019-04-17 07:42] LABS: INR 0.98 (0.83-1.09); PROTHROMBIN TIME (PATIENT) 11.6 SEC (9.7-13.0)
[2019-04-17 08:45] LABS: BILIRUBIN,TOTAL 0.2 mg/dL (0.2-1); BLOOD UREA NITROGEN 59.1 mg/dL (7-18); CALCIUM 7.7 mg/dL (8.5-10.1); CREATININE 4.7 mg/dL (0.55-1.3); POTASSIUM 3.9 mmol/L (3.5-5.1); TOT PROT 6.1 g/dl (6.4-8.2)
--- NOTE | 2019-04-17 09:17 | EKG ---
Test Reason : Blood Pressure : / mmHG Vent. Rate : 070 BPM Atrial Rate : 070 BPM P-R Int : 250 ms QRS Dur : 098 ms QT Int : 458 ms P-R-T Axes : 095 -17 082 degrees QTc Int : 494 ms SINUS RHYTHM WITH 1ST DEGREE A-V BLOCK NONSPECIFIC T WAVE ABNORMALITY PROLONGED QT ABNORMAL ECG Confirmed by oDnal Land MD ([id number]) on 04/17/2019 9:17:05 AM Referred By: Confirmed By:Donal Land MD
[2019-04-17 09:53] LABS: ANISOCYTOSIS 1+; MACROCYTOSIS 0; PLATELET ESTIMATE NORMAL
[2019-04-17] MEDS: MULTIVITAMINS (DAILY MVI) TABLET (FP) PO SCH (11:48)
[2019-04-17] MEDS: DOCUSATE SODIUM 100 MG CAPSULE (FP) PO SCH (11:48)
[2019-04-17] MEDS: FLUoxetine HCL 20 MG CAPSULE PO SCH (11:48)
[2019-04-17] MEDS ORDERED: amLODIPine BESYLATE 5 MG TABLET (FP) ONE (11:51)
--- NOTE | 2019-04-17 12:04 | PN ---
Progress Note (short form) - Note Progress Note: GI CONSULT DICTATED PPI SERIAL H/H HOLD ASA RENAL CONSULTATION NPO MIDNIGHT FOR TENTATIVE EGD WED
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
[2019-04-17] MEDS: amLODIPine BESYLATE 10 MG TABLET (FP) PO SCH (12:41)
[2019-04-17] MEDS ORDERED: guaiFENesin 200 MG/10 ML 10 ML UNIT-DOSE CUPS PO PRN (14:03)
--- NOTE | 2019-04-17 14:12 | CONSULT ---
Consult Consult Specialty:: Nephrology Reason for Consultation:: Advanced Kidney disease - History of Present Illness Chief Complaint: The patient came in with profoundly low Hgb History of Present Illness: 83yo M with PMH of HTN, HLD, DM, CKD, anemia sent by [facility] for low hemoglobin. Patient states he had his routine blood work performed and was told that his blood count is very low. No dizziness, chest pain, or shortness of breath. With generalized weakness, though unsure if this is different from baseline. Denies hematemesis. Has had black stools but believes it is because of his medications. States he is on ASA. No anticoagulant therapy. Had a transfusion about one year ago at [facility] because of his "kidney." Denies history of GI bleed. Colonoscopy last year did not show any bleeding. No fevers or chills. 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 bka) - Alcohol/Substance Use Hx Alcohol Use: No History of Substance Use: reports: None - Smoking History Smoking history: Never smoked Have you smoked in the past 12 months: No - Social History Usual Living Arrangement: Assisted Living () ADL: Support Services History of Recent Travel: No Home Medications - Allergies Allergies/Adverse Reactions: Allergies Allergy/AdvReac Type Severity Reaction Status Date / Time Iodine and Iodide Containing Allergy Rash Verified 09/11/18 14:20 Produc - Home Medications Home Medications: Ambulatory Orders Amlodipine Besylate [Norvasc -] 10 mg PO DAILY #30 tablet 04/21/18 Aspirin Coated [Ecotrin -] 81 mg PO DAILY 04/21/18 Atorvastatin Ca [Lipitor] 20 mg PO HS 04/21/18 Bacitracin - [Bacitracin Topical Ointment -] 1 applic TP DAILY 04/21/18 Clotrimazole/Betamet Diprop [Lotrisone -] 1 applic TP BID 04/21/18 Docusate Sodium 200 mg PO DAILY 04/21/18 Ergocalciferol (Vitamin D2) [Vitamin D2] 50,000 unit PO WEEKLY 04/21/18 Ferrous Gluconate [Ferate] 27 mg PO DAILY 04/21/18 Fluoxetine HCl 20 mg PO DAILY 04/21/18 Fluticasone Propionate [Flovent Diskus] 50 mcg IH BID 04/21/18 Furosemide 80 mg PO DAILY 04/21/18 Gabapentin 300 mg PO TID 04/21/18 Glimepiride 2 mg PO DAILY 04/21/18 Insulin Detemir [Levemir Flextouch] 30 unit SQ HS 04/21/18 Linagliptin [Tradjenta] 5 mg PO DAILY 04/21/18 Sertraline HCl 150 mg PO HS 04/21/18 Tamsulosin HCl 0.4 mg PO HS 04/21/18 Acetaminophen [Tylenol] 650 mg PO DAILY 07/25/18 Albuterol Sulfate Inhaler - [Ventolin HFA Inhaler -] 1 - 2 inh PO QID #1 inhaler 07/25/18 Gentamicin 0.3% Eye Drops - 1 drop OD Q6H 07/25/18 Guaifenesin [Siltussin SA] 200 mg PO PRN PRN 07/25/18 Insulin Aspart [Novolog] 0 unit SQ AC 07/25/18 Multivitamins [Multivit ([facility] Formulary)] 1 tab PO DAILY 07/25/18 Sildenafil Citrate [Viagra] 50 mg PO PRN PRN 07/25/18 Silver Sulfadiazine [Ssd] 400 gm TP DAILY 07/25/18 Amox-Tr/K Cl [Augmentin - 875Mg Tablet] 1 tab PO BID #10 tablet 07/28/18 Cephalexin Monohydrate [Keflex -] 500 mg PO Q6H 10 Days #40 capsule 09/11/18 Sulfamethoxazole/Trimethoprim [Sulfamethoxazole-Tmp Ds Tablet] 1 each PO BID 10 Days #20 tablet 09/11/18 Family Medical History Family History: Denies Review of Systems - Review of Systems Constitutional: reports: No Symptoms Eyes: reports: No Symptoms Neck: reports: No Symptoms Cardiovascular: denies: Chest Pain, Edema, Palpitations, Shortness of Breath Gastrointestinal: denies: Abdominal Pain Musculoskeletal: reports: Back Pain Neurological: reports: No Symptoms Endocrine: denies: Excessive Sweating Hematology/Lymphatic: denies: Easily Bruised, Excessive Bleeding Physical Exam Vital Signs: Vital Signs Temperature 98.1 F 04/17/19 00:14 Pulse Rate 69 04/17/19 06:29 Respiratory Rate 17 04/17/19 06:29 Blood Pressure 164/75 04/17/19 06:29 O2 Sat by Pulse Oximetry (%) 98 04/17/19 06:29 Constitutional: Yes: Well Nourished, No Distress, Calm Eyes: Yes: Conjunctiva Clear HENT: Yes: Normocephalic Neck: Yes: Trachea Midline Cardiovascular: Yes: Regular Rate and Rhythm, S1, S2 Respiratory: Yes: CTA Bilaterally, Diminished Gastrointestinal: Yes: Normal Bowel Sounds, Soft Renal/: No: Bladder Distention, CVA Tenderness - Left, CVA Tenderness - Right Extremities: Yes: Amputation (Rt AKA) Edema: No Neurological: Yes: Alert, Oriented Psychiatric: Yes: Oriented Labs: CBC, BMP 04/17/19 05:30 04/17/19 05:30 Assessment/Plan 83yo M with PMH of HTN, HLD, DM, CKD, anemia sent by [facility] for low hemoglobin. The patient has advanced CKD, Stage. I have discussed DIGITAL ACCOUNT DIRECTOR in the past, but the patient does not consider it. His anemia is to a large extent related to his advanced Kidney failure. But need to rule out other etiologic factors, especially blood loss. Will order baseline work up. Will administer Procrit 20,000 units. Monitor the renal functions with you. Thanks again. Cora Sharpe MD
--- NOTE | 2019-04-17 14:35 | PN ---
Teaching Attending Note Name of Resident: Charlie Samano ATTENDING PHYSICIAN STATEMENT I saw and evaluated the patient. I reviewed the resident's note and discussed the case with the resident. I agree with the resident's findings and plan as documented. Seen and examined; please see resident note for further historical information. I personally verified all hayward historical information and exam findings. Personally interpreted all imaging and diagnostics and reviewed appropriate consults. I reviewed all labs and vital signs as per resident note and EMR as documented. I agree with the above assessment and plan unless supplemented by myself in the following. Patient has no bleeding and refused endoscopy at previous visit with Dr. Verma. FOBT is negative. Erythropoietin level is pending. Hemodynamically stable, status post transfusion. Labs are consistent with anemia of chronic disease likely secondary to renal etiology. Eosinophilia to 5% is noted. Patient is also noted to have a chronic metabolic acidosis secondary to his chronic kidney disease which is improved. He was seen by Dr. Haji who recommended to continue on current management and made recommendations for erythropoietin replacement. He is noted to have chronically elevated alkaline phosphatase dating back to 2018 with GGT pending but no acute abdominal symptoms. Finally, at previous visit which is also seen in this visit he is noted to have a first-degree AV block with a systolic murmur that is at least moderate intensity with a corresponding prolonged QTC interval to 494 with no prior echocardiogram in our system. We have ordered echocardiogram but this does not need to be done urgently. We will discuss with nephrology and if indicated we can discharge the patient back to their facility. Noted gastroenterology consult placed last night, unclear why it is no bleeding and no positive FOBT with prior refusal of scope. Will discuss with her service 10 item review of systems completed and is negative aside from as discussed in the subjective data in my own/the resident documentation. VS, labs, imaging reviewed NAD, AAO, resting comfortably in bed. RRR s1/2 no mgr Normal muscle tone, moves all 5 extremities with normal apparent strength Neck is supple, trachea midline, no kyra LN Lungs CTAB with sym expansion NT ND +BS no kyra organomegaly CN2-12 wnl; no FND NC AT EOMI PERRLA Normal mood, appropriate behavior, euthymic affect No skin breakdown or rashes noted EKG reviewed Echocardiogram pending Assessment and plan: Patient presents with recurring anemia that is secondary to chronic disease with CKD 5/ESRD being present for which she is declined hemodialysis. Seen by nephrology and started on erythropoietin replacement. Negative FOBT and no bleeding. Will discuss with subspecialty services. If he is stable posttransfusion and all are in agreement he will be able to be taken back to his facility today with continued follow-up. He has declined dialysis again, follow-up electrolytes and fluid status closely as an outpatient and consider overall goals of care given his advanced age of 83 and advanced kidney disease. He can follow-up outpatient strongyloidiasis, CBC with differential, etc. etc. for the eosinophilia. Iron studies noted previously, B12 and folate levels within normal limits. Full code
[2019-04-17] MEDS ORDERED: EPOETIN ALFA 10,000 UNIT/1 ML VIAL SQ ONE (16:30)
[2019-04-17] MEDS ORDERED: EPOETIN ALFA 20,000 UNIT/1 ML VIAL SQ ONE (16:30)
--- NOTE | 2019-04-17 16:55 | ECHO ---
Version: 1 Name: LEDA RAMOS Exam: Adult Echocardiogram Study Date: 04/17/2019, 3:03 PM Age: 83 Years MMode/2D Measurements & Calculations IVSd: 1.17 cm LVIDs: 2.9 cm LVIDd: 4.2 cm LVPWd: 1.09 cm LAV (MOD-bp): 56.0 ml LVOT diam: 2.17 cm Ao root diam: 2.5 cm LA dimension: 4.0 cm Doppler Measurements & Calculations MV E max joel: 92.8 cm/sec Med E/e': 17.6 MV A max joel: 95.8 cm/sec Med Peak E' Joel: 5.3 cm/sec MV E/A: 0.97 Lat E/e': 10.2 Lat Peak E' Joel: 9.1 cm/sec Ao max P.4 mmHg SAGAR(I,D): 3.1 cm Ao mean P.8 mmHg LV V1 mean: 60.1 cm/sec Ao V2 max: 153.4 cm/sec LV V1 mean P.76 mmHg PI end-d joel: 93.7 cm/sec TR max joel: 224.6 cm/sec TR max P.6 mmHg Left Ventricle The left ventricular size, thickness and function are normal. Ejection Fraction = 70%. The transmitr al spectral Doppler flow pattern is suggestive of impaired LV relaxation. Right Ventricle The right ventricle is normal in size and function. Atria Normal left and right atrial size and function. Mitral Valve There is mild mitral annular calcification. There is mild mitral regurgitation. Tricuspid Valve The tricuspid valve is normal in structure and function. There is Trace to mild tricuspid regurgitat ion. Aortic Valve There is mild aortic sclerosis.;. Trace to mild aortic regurgitation. Pulmonic Valve The pulmonic valve is not well seen, but is grossly normal. Great Vessels The aortic root is normal size. Normal aortic arch, descending and ascending aorta. Pericardium/Pleura There is no pericardial effusion. Summary Statements The left ventricular size, thickness and function are normal Ejection Fraction = 70%. The transmitral spectral Doppler flow pattern is suggestive of impaired LV relaxation. The right ventricle is normal in size and function. Normal left and right atrial size and function. There is mild mitral annular calcification. There is mild mitral regurgitation. The tricuspid valve is normal in structure and function. There is Trace to mild tricuspid regurgitation. There is mild aortic sclerosis.; Trace to mild aortic regurgitation. The pulmonic valve is not well seen, but is grossly normal. The aortic root is normal size. Normal aortic arch, descending and ascending aorta There is no pericardial effusion. Braeden Noel 04/17/2019, 4:55 PM Ordering Physician: SHARON OREILLY Referring Physician: SHARON OREILLY Performed By: Carmita Sarmiento
--- NOTE | 2019-04-17 17:02 | PN ---
Physical Exam: SUBJECTIVE: Patient seen and examined at bedside. No acute events. Pt would like to have EGD as inpatient. OBJECTIVE: Vital Signs Period Temp Pulse Resp BP Sys/Macdonald Pulse Ox Last 24 Hr 97.7 F-98.1 F 69-72 17-20 118-164/58-75 98-99 GENERAL: The patient is awake, alert, and fully oriented, in no acute distress. LUNGS: Breath sounds equal, clear to auscultation bilaterally, no wheezes, no crackles, no accessory muscle use. HEART: Regular rate and rhythm, S1, S2 without murmur, rub or gallop. ABDOMEN: Soft, nontender, nondistended. EXTREMITIES: 2+ pulses, warm, well-perfused, no edema. 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 Normal speech, gait not observed. PSYCH: Normal mood, normal affect. Laboratory Results - last 24 hr 04/16/19 04/16/19 04/16/19 21:16 21:16 21:16 WBC 9.9 RBC 2.29 L Hgb 7.1 L Hct 21.6 L D MCV 94.3 MCH 31.2 MCHC 33.0 RDW 14.5 Plt Count 230 MPV 7.4 L Absolute Neuts (auto) 7.4 Neutrophils % 74.3 Neutrophils % (Manual) 74.7 Band Neutrophils % 0.0 Lymphocytes % 12.7 D Lymphocytes % (Manual) 17.5 Monocytes % 8.9 Monocytes % (Manual) 5 Eosinophils % 3.5 Eosinophils % (Manual) 1.0 D Basophils % 0.6 Basophils % (Manual) 0.0 Myelocytes % (Man) 1 D Promyelocytes % (Man) 0 Blast Cells % (Manual) 0 Nucleated RBC % 0 Metamyelocytes 1 Hypochromia Platelet Estimate Polychromasia Poikilocytosis Anisocytosis Microcytosis Macrocytosis Retic Count PT with INR 11.80 INR 1.00 Sodium 138 Potassium 3.8 Chloride 109 H Carbon Dioxide 19 L Anion Gap 10 BUN 63.4 H Creatinine 5.0 H Est GFR (CKD-EPI)AfAm 11.47 Est GFR (CKD-EPI)NonAf 9.90 POC Glucometer Random Glucose 257 H Calcium 7.4 L Iron TIBC Iron Saturation Unsaturated IBC Ferritin Total Bilirubin 0.4 AST 15 ALT 17 Alkaline Phosphatase 170 H Total Protein 5.8 L Albumin 2.9 L Vitamin B12 Serum Folate Stool Occult Blood Blood Type Antibody Screen Crossmatch 04/17/19 04/17/19 04/17/19 00:32 00:32 05:30 WBC 10.7 H RBC 2.63 L Hgb 8.2 L Hct 24.2 L MCV 92.1 MCH 31.2 MCHC 33.9 RDW 14.8 Plt Count 222 MPV 7.7 Absolute Neuts (auto) 7.5 Neutrophils % 70.1 Neutrophils % (Manual) 71.0 Band Neutrophils % 0.0 Lymphocytes % 16.1 D Lymphocytes % (Manual) 18.0 Monocytes % 9.3 Monocytes % (Manual) 3 L Eosinophils % 4.0 Eosinophils % (Manual) 5.0 H D Basophils % 0.5 Basophils % (Manual) 0.0 Myelocytes % (Man) 2 D Promyelocytes % (Man) 0 Blast Cells % (Manual) 0 Nucleated RBC % 0 Metamyelocytes 1 Hypochromia 0 Platelet Estimate Normal Polychromasia 1+ Poikilocytosis 0 Anisocytosis 1+ Microcytosis 0 Macrocytosis 0 Retic Count 3.30 H PT with INR INR Sodium Potassium Chloride Carbon Dioxide Anion Gap BUN Creatinine Est GFR (CKD-EPI)AfAm Est GFR (CKD-EPI)NonAf POC Glucometer Random Glucose Calcium Iron TIBC Iron Saturation Unsaturated IBC Ferritin 35.0 Total Bilirubin AST ALT Alkaline Phosphatase Total Protein Albumin Vitamin B12 Serum Folate Stool Occult Blood Blood Type Antibody Screen Crossmatch 04/17/19 04/17/19 04/17/19 05:30 05:30 06:30 WBC RBC Hgb Hct MCV MCH MCHC RDW Plt Count MPV Absolute Neuts (auto) Neutrophils % Neutrophils % (Manual) Band Neutrophils % Lymphocytes % Lymphocytes % (Manual) Monocytes % Monocytes % (Manual) Eosinophils % Eosinophils % (Manual) Basophils % Basophils % (Manual) Myelocytes % (Man) Promyelocytes % (Man) Blast Cells % (Manual) Nucleated RBC % Metamyelocytes Hypochromia Platelet Estimate Polychromasia Poikilocytosis Anisocytosis Microcytosis Macrocytosis Retic Count PT with INR 11.60 INR 0.98 Sodium 141 Potassium 3.9 Chloride 110 H Carbon Dioxide 21 Anion Gap 11 BUN 59.1 H Creatinine 4.7 H Est GFR (CKD-EPI)AfAm 12.36 Est GFR (CKD-EPI)NonAf 10.67 POC Glucometer 82 Random Glucose 82 Calcium 7.7 L Iron TIBC Iron Saturation Unsaturated IBC Ferritin Total Bilirubin 0.2 AST 17 ALT 18 Alkaline Phosphatase 163 H Total Protein 6.1 L Albumin 3.0 L Vitamin B12 615 Serum Folate 23 H Stool Occult Blood Blood Type Antibody Screen Crossmatch 04/17/19 12:00 WBC RBC Hgb Hct MCV MCH MCHC RDW Plt Count MPV Absolute Neuts (auto) Neutrophils % Neutrophils % (Manual) Band Neutrophils % Lymphocytes % Lymphocytes % (Manual) Monocytes % Monocytes % (Manual) Eosinophils % Eosinophils % (Manual) Basophils % Basophils % (Manual) Myelocytes % (Man) Promyelocytes % (Man) Blast Cells % (Manual) Nucleated RBC % Metamyelocytes Hypochromia Platelet Estimate Polychromasia Poikilocytosis Anisocytosis Microcytosis Macrocytosis Retic Count PT with INR INR Sodium Potassium Chloride Carbon Dioxide Anion Gap BUN Creatinine Est GFR (CKD-EPI)AfAm Est GFR (CKD-EPI)NonAf POC Glucometer 113 Random Glucose Calcium Iron TIBC Iron Saturation Unsaturated IBC Ferritin Total Bilirubin AST ALT Alkaline Phosphatase Total Protein Albumin Vitamin B12 Serum Folate Stool Occult Blood Blood Type Antibody Screen Crossmatch Active Medications Generic Name Dose Route Start Last Admin Trade Name Freq PRN Reason Stop Dose Admin Amlodipine Besylate 10 mg 04/17/19 11:30 04/17/19 12:41 Norvasc - PO 10 mg DAILY NATHALIE Administration Atorvastatin Calcium 20 mg 04/17/19 22:00 Lipitor - PO HS [facility] Docusate Sodium 200 mg 04/17/19 10:00 04/17/19 11:48 Colace - PO 200 mg DAILY NATHALIE Administration Fluoxetine HCl 20 mg 04/17/19 10:00 04/17/19 11:48 Prozac - PO 20 mg DAILY NATHALIE Administration Gabapentin 300 mg 04/17/19 06:00 04/17/19 07:04 Neurontin - PO 300 mg TID NATHALIE Administration Guaifenesin 10 ml 04/17/19 14:03 Robitussin - PO Q6H PRN COUGH Insulin Aspart 1 vial 04/17/19 07:00 04/17/19 12:41 Novolog Vial Sliding Scale - SQ Not Given ACHS [facility] Protocol Insulin Detemir 30 units 04/17/19 22:00 Levemir Vial SQ HS NATHALIE Mometasone Furoate 1 puff 04/17/19 22:00 Asmanex 220mcg - IH HS NATHALIE Multivitamins/Minerals/Vitamin C 1 tab 04/17/19 10:00 04/17/19 11:48 Tab-A-Vit - PO 1 tab DAILY NATHALIE Administration Sertraline HCl 150 mg 04/17/19 22:00 Zoloft - PO HS NATHALIE Tamsulosin HCl 0.4 mg 04/17/19 22:00 Flomax - PO HS [facility] ASSESSMENT/PLAN: This 83 y/o M PMH HTN, HLD, DM, CKD, PVD, diverticulosis who presents today with asymptomatic anemia. 1) Anemia -Anemia of chronic disease vs UGIB vs iron deficiency anemia -Hgb of 7.1, previously 9.5 in August 2018 now 8.1 s/p 1prbc transfusion -Normocytic, normochromic anemia -Negative fobt, no hemorrhoids, colonoscopy in June 2018 negative for malignancies with repeat in 3 years. -Prior colonoscopy showed diverticulosis -GI recommending EGD in AM to r/o upper gi bleed, famotidine IV. -Holding ASA, amlodipine, and lasix -Iron Studies showing AOCD, B12/Folate normal. -Nephrology consulted and started Epo (Procrit 20,000) 2) Hx of HTN -Patient normotensive after initial BP, will continue to monitor and hold home amlodipine -Monitoring BP as it was trending down 3) Hx of CKD ? acute on chronic picture -BUN near baseline, Creatinine of 4.7 today, -Holding home lasix -Nephrology consulted- Dr. Haji - He has declined dialysis again, follow-up electrolytes and fluid status closely as an outpatient and consider overall goals of care given his advanced age of 83 and advanced kidney disease. He can follow-up outpatient strongyloidiasis, CBC with differential, etc. for the eosinophilia. 4) Hx of IDDM -Insulin siding scale -BGM ACHS - levemir 30 HS -Diabetic neuropathy-continue Gabapentin 5) Hx of PVD -Holding ASA until discussion with GI F:off fluids E: Monitor CMP N: NPO after midnight for EGD tm and then DC if negative DVT: SCD Dispo: Admit to telemetry monitoring Visit type - Emergency Visit Emergency Visit: Yes ED Registration Date: 04/16/19 Care time: The patient presented to the Emergency Department on the above date and was hospitalized for further evaluation of their emergent condition. - New Patient This patient is new to me today: Yes Date on this admission: 04/17/19 - Critical Care Critical Care patient: No - Discharge Referral Referred to [facility] Med P.C.: No ATTENDING PHYSICIAN STATEMENT I saw and evaluated the patient. I reviewed the resident's note and discussed the case with the resident. I agree with the resident's findings and plan as documented. SUBJECTIVE: OBJECTIVE: ASSESSMENT AND PLAN:
[2019-04-17] MEDS ORDERED: TAMSULOSIN HCL 0.4 MG CAP ONE (21:46)
[2019-04-17] MEDS ORDERED: SERTRALINE HCL 50 MG TABLET (FP) ONE (21:46)
[2019-04-17] MEDS ORDERED: ATORVASTATIN CA 20 MG TABLET (FP) ONE (21:46)
[2019-04-17] MEDS ORDERED: INSULIN (LEVEMIR) 100 UNITS/ML UNITS SQ ONE (21:47)
[2019-04-17] MEDS: SERTRALINE HCL 50 MG TABLET (FP) PO SCH (21:54)
[2019-04-17] MEDS: TAMSULOSIN HCL 0.4 MG CAP PO SCH (21:54)
[2019-04-17] MEDS: ATORVASTATIN CA 20 MG TABLET (FP) PO SCH (21:54)
[2019-04-17] MEDS: MOMETASONE FUROATE 220 MCG/IH INHALER IH SCH (22:59)
[2019-04-17] MEDS: INSULIN (LEVEMIR) 100 UNITS/ML UNITS SQ SCH (22:59)
[2019-04-18] MEDS: FUROSEMIDE 40 MG/4 ML INJECTABLE VIAL IVPUSH SCH ×3 (01:04→10:30)
[2019-04-18 02:52] VITALS: BMI 28.7
[2019-04-18] MEDS: GABAPENTIN 300 MG CAPSULE PO SCH ×3 (06:33→22:10)
[2019-04-18] MEDS: INSULIN SLIDING SCALE (NOVOLOG) 1 VIAL SQ SCH ×4 (06:35→22:11)
[2019-04-18 06:41] LABS: ALBUMIN 2.6 g/dl (3.4-5.0); BILIRUBIN,TOTAL 0.2 mg/dL (0.2-1); BLOOD UREA NITROGEN 57.2 mg/dL (7-18); CALCIUM 7.6 mg/dL (8.5-10.1); CREATININE 4.5 mg/dL (0.55-1.3); POTASSIUM 4.1 mmol/L (3.5-5.1); TOT PROT 5.3 g/dl (6.4-8.2)
--- NOTE | 2019-04-18 07:29 | PN ---
Teaching Attending Note Name of Resident: Charlie Samano ATTENDING PHYSICIAN STATEMENT I saw and evaluated the patient. I reviewed the resident's note and discussed the case with the resident. I agree with the resident's findings and plan as documented. Seen and examined; please see resident note for further historical information. I personally verified all hayward historical information and exam findings. Personally interpreted all imaging and diagnostics and reviewed appropriate consults. I reviewed all labs and vital signs as per resident note and EMR as documented. I agree with the above assessment and plan unless supplemented by myself in the following. No bleeding evident overnight, the patient has no new complaints. 10 item review of systems completed and is negative aside from as discussed in the subjective data in my own/the resident documentation. VS, labs, imaging reviewed NAD, AAO, resting comfortably in bed. RRR s1/2 no mgr Normal muscle tone, moves all 5 extremities with normal apparent strength Neck is supple, trachea midline, no kyra LN Lungs CTAB with sym expansion NT ND +BS no kyra organomegaly CN2-12 wnl; no FND NC AT EOMI PERRLA Normal mood, appropriate behavior, euthymic affect No skin breakdown or rashes noted EKG reviewed Echocardiogram pending Assessment and plan: Patient presents with recurring anemia that is secondary to chronic disease with CKD 5/ESRD being present for which she is declined hemodialysis. Seen by nephrology and started on erythropoietin replacement. Negative FOBT and no bleeding. Will discuss with subspecialty services. If he is stable posttransfusion and all are in agreement he will be able to be taken back to his facility today with continued follow-up. He has declined dialysis again, follow-up electrolytes and fluid status closely as an outpatient and consider overall goals of care given his advanced age of 83 and advanced kidney disease. He can follow-up outpatient strongyloidiasis, CBC with differential, etc. etc. for the eosinophilia. Iron studies noted previously, B12 and folate levels within normal limits. *Seen by GI; they have opted for inpatient endoscopy; followup EGD results. Will determine dispo based on this. H/h stable, no bleeding. Full code
--- NOTE | 2019-04-18 07:47 | PN ---
Physical Exam: SUBJECTIVE: Patient seen and examined. No acute events. Afebrile OBJECTIVE: Vital Signs Period Temp Pulse Resp BP Sys/Macdonald Pulse Ox Last 24 Hr 97.8 F-98.4 F 64-75 18-20 132-174/67-88 98-98 GENERAL: The patient is awake, alert, and fully oriented, in no acute distress. LUNGS: Breath sounds equal, clear to auscultation bilaterally, no wheezes, no crackles, no accessory muscle use. HEART: Regular rate and rhythm, S1, S2 without murmur, rub or gallop. ABDOMEN: Soft, nontender, nondistended. EXTREMITIES: 2+ pulses, warm, well-perfused, no edema. 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 Normal speech, gait not observed. PSYCH: Normal mood, normal affect. Laboratory Results - last 24 hr 04/17/19 04/17/19 04/17/19 05:30 05:30 12:00 Neutrophils % (Manual) 71.0 Band Neutrophils % 0.0 Lymphocytes % (Manual) 18.0 Monocytes % (Manual) 3 L Eosinophils % (Manual) 5.0 H D Basophils % (Manual) 0.0 Myelocytes % (Man) 2 D Promyelocytes % (Man) 0 Blast Cells % (Manual) 0 Metamyelocytes 1 Hypochromia 0 Platelet Estimate Normal Polychromasia 1+ Poikilocytosis 0 Anisocytosis 1+ Microcytosis 0 Macrocytosis 0 Sodium 141 Potassium 3.9 Chloride 110 H Carbon Dioxide 21 Anion Gap 11 BUN 59.1 H Creatinine 4.7 H Est GFR (CKD-EPI)AfAm 12.36 Est GFR (CKD-EPI)NonAf 10.67 POC Glucometer 113 Random Glucose 82 Calcium 7.7 L Erythropoietin Total Bilirubin 0.2 GGT AST 17 ALT 18 Alkaline Phosphatase 163 H Total Protein 6.1 L Albumin 3.0 L Vitamin B12 615 Serum Folate 23 H 04/17/19 04/17/19 04/17/19 14:00 17:43 22:44 Neutrophils % (Manual) Band Neutrophils % Lymphocytes % (Manual) Monocytes % (Manual) Eosinophils % (Manual) Basophils % (Manual) Myelocytes % (Man) Promyelocytes % (Man) Blast Cells % (Manual) Metamyelocytes Hypochromia Platelet Estimate Polychromasia Poikilocytosis Anisocytosis Microcytosis Macrocytosis Sodium Potassium Chloride Carbon Dioxide Anion Gap BUN Creatinine Est GFR (CKD-EPI)AfAm Est GFR (CKD-EPI)NonAf POC Glucometer 129 158 Random Glucose Calcium Erythropoietin 6.8 Total Bilirubin GGT AST ALT Alkaline Phosphatase Total Protein Albumin Vitamin B12 Serum Folate 04/18/19 04/18/19 05:30 05:45 Neutrophils % (Manual) Band Neutrophils % Lymphocytes % (Manual) Monocytes % (Manual) Eosinophils % (Manual) Basophils % (Manual) Myelocytes % (Man) Promyelocytes % (Man) Blast Cells % (Manual) Metamyelocytes Hypochromia Platelet Estimate Polychromasia Poikilocytosis Anisocytosis Microcytosis Macrocytosis Sodium 142 Potassium 4.1 Chloride 114 H Carbon Dioxide 21 Anion Gap 7 L BUN 57.2 H Creatinine 4.5 H Est GFR (CKD-EPI)AfAm 13.03 Est GFR (CKD-EPI)NonAf 11.24 POC Glucometer 51 Random Glucose 52 L Calcium 7.6 L Erythropoietin Total Bilirubin 0.2 GGT 19 AST 14 L ALT 15 Alkaline Phosphatase 132 H Total Protein 5.3 L Albumin 2.6 L Vitamin B12 Serum Folate Active Medications Generic Name Dose Route Start Last Admin Trade Name Freq PRN Reason Stop Dose Admin Amlodipine Besylate 10 mg 04/17/19 11:30 04/17/19 12:41 Norvasc - PO 10 mg DAILY NATHALIE Administration Atorvastatin Calcium 20 mg 04/17/19 22:00 04/17/19 21:54 Lipitor - PO 20 mg HS NATHALIE Administration Docusate Sodium 200 mg 04/17/19 10:00 04/17/19 11:48 Colace - PO 200 mg DAILY NATHALIE Administration Fluoxetine HCl 20 mg 04/17/19 10:00 04/17/19 11:48 Prozac - PO 20 mg DAILY NATHALIE Administration Furosemide 40 mg 04/18/19 00:45 04/18/19 01:04 Lasix Injection - IVPUSH 40 mg DAILY NATHALIE Administration Gabapentin 300 mg 04/17/19 06:00 04/18/19 06:33 Neurontin - PO 300 mg TID NATHALIE Administration Guaifenesin 10 ml 04/17/19 14:03 Robitussin - PO Q6H PRN COUGH Insulin Aspart 1 vial 04/17/19 07:00 04/18/19 06:35 Novolog Vial Sliding Scale - SQ Not Given ACHS NATHALIE Protocol Insulin Detemir 30 units 04/17/19 22:00 04/17/19 22:59 Levemir Vial SQ 30 units HS NATHALIE Administration Mometasone Furoate 1 puff 04/17/19 22:00 04/17/19 22:59 Asmanex 220mcg - IH 1 puff HS NATHALIE Administration Multivitamins/Minerals/Vitamin C 1 tab 04/17/19 10:00 04/17/19 11:48 Tab-A-Vit - PO 1 tab DAILY NATHALIE Administration Sertraline HCl 150 mg 04/17/19 22:00 04/17/19 21:54 Zoloft - PO 150 mg HS NATHALIE Administration Tamsulosin HCl 0.4 mg 04/17/19 22:00 04/17/19 21:54 Flomax - PO 0.4 mg HS NATHALIE Administration ASSESSMENT/PLAN: This 83 y/o M PMH HTN, HLD, DM, CKD, PVD, diverticulosis who presents today with asymptomatic anemia. 1) Anemia -Anemia of chronic disease vs UGIB vs iron deficiency anemia -Hgb of 7.1, previously 9.5 in August 2018 now dropped Hb-7.7 -Normocytic, normochromic anemia -Negative fobt, no hemorrhoids, colonoscopy in June 2018 negative for malignancies with repeat in 3 years. -Prior colonoscopy showed diverticulosis, AVM's Dr. Smith would like colonoscopy given hx of avm and worsening anemia. EGD showing atrophic stomach, patchy erythema, in duodenal bulb, irregular z line, no obvious bleed, ulcer, avm noticed. recommending capsule egd and colonscopy. Ordered bowel prep pt npo after midnight. -IV 40 protonix -Holding ASA, amlodipine, and lasix -Iron Studies showing AOCD, B12/Folate normal. -Nephrology consulted and started Epo (Procrit 20,000) 2) Hx of HTN -Patient normotensive after initial BP, will continue to monitor and hold home amlodipine -Monitoring BP as it was trending down 3) Hx of CKD ? acute on chronic picture -BUN near baseline, Creatinine of 4.7 today, -Holding home lasix, epo normal -Nephrology consulted- Dr. Haji - He has declined dialysis again, follow-up electrolytes and fluid status closely as an outpatient and consider overall goals of care given his advanced age of 83 and advanced kidney disease. He can follow-up outpatient strongyloidiasis, CBC with differential, etc. for the eosinophilia. 4) Hx of IDDM -Insulin siding scale -BGM ACHS - levemir 30 HS -Diabetic neuropathy-continue Gabapentin 5) Hx of PVD -Holding ASA until discussion with GI F:off fluids E: Monitor CMP N: NPO after midnight for EGD tm and then DC if negative DVT: SCD Dispo: Admit to telemetry monitoring Visit type - Emergency Visit Emergency Visit: Yes ED Registration Date: 04/16/19 Care time: The patient presented to the Emergency Department on the above date and was hospitalized for further evaluation of their emergent condition. - New Patient This patient is new to me today: No - Critical Care Critical Care patient: No - Discharge Referral Referred to [facility] Med P.C.: No ATTENDING PHYSICIAN STATEMENT I saw and evaluated the patient. I reviewed the resident's note and discussed the case with the resident. I agree with the resident's findings and plan as documented. SUBJECTIVE: OBJECTIVE: ASSESSMENT AND PLAN:
[2019-04-18] MEDS ORDERED: DEXTROSE 50%-WATER - 25 GM/50 ML VIAL IVPUSH ONE ×3 (07:55→10:20)
[2019-04-18 09:23] LABS: EOS % 2.1 % (0-4.5); HEMATOCRIT 22.7 % (35.4-49); HEMOGLOBIN 7.7 GM/dL (11.7-16.9); LYMPH % 12.8 % (8-40); MCH 31.1 pg (25.7-33.7); MCHC 34.1 g/dl (32.0-35.9); MEAN CELL VOLUME 91.2 fl (80-96); MEAN PLT VOLUME 7.8 fl (7.5-11.1); MONO % 9.2 % (3.8-10.2); NEUT % 74.9 % (42.8-82.8); PLATELET COUNT 235 K/MM3 (134-434); RBC 2.49 M/mm3 (4.00-5.60); RDW 15.1 % (11.9-15.9); WHITE BLOOD COUNT 13.2 K/mm3 (4.0-10.0)
[2019-04-18] MEDS: FLUoxetine HCL 20 MG CAPSULE PO SCH (10:14)
[2019-04-18] MEDS: DOCUSATE SODIUM 100 MG CAPSULE (FP) PO SCH (10:14)
[2019-04-18] MEDS: amLODIPine BESYLATE 10 MG TABLET (FP) PO SCH (10:14)
[2019-04-18] MEDS: MULTIVITAMINS (DAILY MVI) TABLET (FP) PO SCH (10:18)
[2019-04-18] MEDS ORDERED: DEXTROSE 50%-WATER - 25 GM/50 ML VIAL IVPUSH PRN (10:20)
--- NOTE | 2019-04-18 11:49 | PN ---
Progress Note (short form) - Note Progress Note: EGD performed today revealing atrophic appearing stomach and patchy erythema in duodenal bulb. Irregular z line with small islands noted. Biopsies taken. No obvious ulcer, avms or evidence of bleeding. See scanned report for details. Recommendations: -Await pathology results -PPI daily -Pending course and further discussion with patient would consider colonoscopy to re-evaluate for avms and possible treatment. May also need capsule endoscopy.
--- NOTE | 2019-04-18 12:04 | PN ---
Progress Note, Physician Chief Complaint: The patient seen and examined in his room. For EGD today. No overt bleeding. Patient received PRBC transfusion History of Present Illness: 83yo M with PMH of HTN, HLD, DM, CKD, anemia sent by [facility] for low hemoglobin. Patient had routine blood work performed and was told that his blood count is very low. No dizziness, chest pain, or shortness of breath. With generalized weakness, though unsure if this is different from baseline. Denies hematemesis. Has had black stools but believes it is because of his medications. States he is on ASA. No anticoagulant therapy. - Current Medication List Current Medications: Active Medications Amlodipine Besylate (Norvasc -) 10 mg PO DAILY [facility] Last Admin: 04/18/19 10:14 Dose: 10 mg Atorvastatin Calcium (Lipitor -) 20 mg PO [facility] Last Admin: 04/17/19 21:54 Dose: 20 mg Docusate Sodium (Colace -) 200 mg PO DAILY [facility] Last Admin: 04/18/19 10:14 Dose: 200 mg Fluoxetine HCl (Prozac -) 20 mg PO DAILY [facility] Last Admin: 04/18/19 10:14 Dose: 20 mg Furosemide (Lasix Injection -) 40 mg IVPUSH DAILY [facility] Last Admin: 04/18/19 10:14 Dose: 40 mg Gabapentin (Neurontin -) 300 mg PO TID [facility] Last Admin: 04/18/19 06:33 Dose: 300 mg Guaifenesin (Robitussin -) 10 ml PO Q6H PRN PRN Reason: COUGH Insulin Aspart (Novolog Vial Sliding Scale -) 1 vial SQ [facility]; Protocol Last Admin: 04/18/19 06:35 Dose: Not Given Insulin Detemir (Levemir Vial) 30 units SQ [facility] Last Admin: 04/17/19 22:59 Dose: 30 units Mometasone Furoate (Asmanex 220mcg -) 1 puff IH [facility] Last Admin: 04/17/19 22:59 Dose: 1 puff Multivitamins/Minerals/Vitamin C (Tab-A-Vit -) 1 tab PO DAILY [facility] Last Admin: 04/18/19 10:18 Dose: 1 tab Sertraline HCl (Zoloft -) 150 mg PO [facility] Last Admin: 04/17/19 21:54 Dose: 150 mg Tamsulosin HCl (Flomax -) 0.4 mg PO HS [facility] Last Admin: 04/17/19 21:54 Dose: 0.4 mg - Objective Vital Signs: Vital Signs Temperature 98.2 F 04/18/19 09:00 Pulse Rate 66 04/18/19 09:00 Respiratory Rate 18 04/18/19 09:00 Blood Pressure 143/64 04/18/19 09:00 O2 Sat by Pulse Oximetry (%) 98 04/18/19 09:00 Constitutional: Yes: No Distress, Calm, Pallor Eyes: Yes: Conjunctiva Clear HENT: Yes: Atraumatic Neck: Yes: Supple Cardiovascular: Yes: Regular Rate and Rhythm, S1, S2 Respiratory: Yes: Regular Gastrointestinal: Yes: Normal Bowel Sounds, Soft Genitourinary: No: Bladder Distention, CVA Tenderness - Left, CVA Tenderness - Right Musculoskeletal: Yes: Back Pain Edema: No Neurological: Yes: Alert, Oriented Labs: CBC, BMP 04/18/19 05:50 04/18/19 05:30 INR, PTT INR 0.98 (0.83-1.09) 04/17/19 05:30 Problem List - Problems (1) CKD (chronic kidney disease) Code(s): N18.9 - CHRONIC KIDNEY DISEASE, UNSPECIFIED (2) Anemia Code(s): D64.9 - ANEMIA, UNSPECIFIED Qualifiers: Anemia type: unspecified type Qualified Code(s): D64.9 - Anemia, unspecified (3) SONDRA (acute kidney injury) Code(s): N17.9 - ACUTE KIDNEY FAILURE, UNSPECIFIED Assessment/Plan 83yo M with PMH of HTN, HLD, DM, CKD, anemia sent by [facility] for low hemoglobin. The patient has advanced CKD, Stage. I have discussed [facility] in the past, but the patient would not consider it. His anemia is to a large extent related to his advanced Kidney failure. But need to rule out other etiologic factors, especially blood loss. The patient received Procrit 20,000 units yesterday. Will review EGD findings when available. Monitor the renal functions with you. Thanks again. Cora Sharpe MD
[2019-04-18] MEDS ORDERED: BISACODYL 5 MG TABLET.DR (FP) PO ONE (16:00)
[2019-04-18] MEDS ORDERED: PEG 3350/NA SULF BICARB CL/KCL 4000 ML SOLN.RECON PO ONE (16:00)
[2019-04-18] MEDS: SERTRALINE HCL 50 MG TABLET (FP) PO SCH (22:10)
[2019-04-18] MEDS: ATORVASTATIN CA 20 MG TABLET (FP) PO SCH (22:10)
[2019-04-18] MEDS: TAMSULOSIN HCL 0.4 MG CAP PO SCH (22:10)
[2019-04-18] MEDS: INSULIN (LEVEMIR) 100 UNITS/ML UNITS SQ SCH (22:12)
[2019-04-18] MEDS: MOMETASONE FUROATE 220 MCG/IH INHALER IH SCH (23:16)
[2019-04-19] MEDS: INSULIN SLIDING SCALE (NOVOLOG) 1 VIAL SQ SCH ×4 (06:42→21:57)
[2019-04-19] MEDS: GABAPENTIN 300 MG CAPSULE PO SCH ×2 (06:43→21:50)
[2019-04-19 07:57] LABS: ALBUMIN 2.6 g/dl (3.4-5.0); BILIRUBIN,TOTAL 0.1 mg/dL (0.2-1); BLOOD UREA NITROGEN 51.9 mg/dL (7-18); CALCIUM 7.6 mg/dL (8.5-10.1); CREATININE 4.4 mg/dL (0.55-1.3); POTASSIUM 4.1 mmol/L (3.5-5.1); TOT PROT 5.1 g/dl (6.4-8.2)
[2019-04-19 08:44] LABS: BASO % 0.7 % (0-2.0); HEMATOCRIT 23.3 % (35.4-49); HEMOGLOBIN 7.9 GM/dL (11.7-16.9); LYMPH % 15.6 % (8-40); MCH 31.1 pg (25.7-33.7); MEAN CELL VOLUME 91.6 fl (80-96); MEAN PLT VOLUME 7.7 fl (7.5-11.1); MONO % 9.2 % (3.8-10.2); NEUT % 70.5 % (42.8-82.8); PLATELET COUNT 205 K/MM3 (134-434); RBC 2.54 M/mm3 (4.00-5.60); RDW 14.9 % (11.9-15.9); WHITE BLOOD COUNT 9.3 K/mm3 (4.0-10.0)
[2019-04-19] MEDS: amLODIPine BESYLATE 10 MG TABLET (FP) PO SCH (09:56)
[2019-04-19 10:29] LABS: ANISOCYTOSIS 1+; MACROCYTOSIS 0; PLATELET ESTIMATE NORMAL
--- NOTE | 2019-04-19 11:31 | PN ---
Teaching Attending Note Name of Resident: Charlie Samano ATTENDING PHYSICIAN STATEMENT I saw and evaluated the patient. I reviewed the resident's note and discussed the case with the resident. I agree with the resident's findings and plan as documented. EGD was performed revealing atrophic stomach with patchy erythema in the duodenal bulb with irregular Z line and small islands noted. Biopsy was taken and results are pending. There is no obvious ulcer. GI input is appreciated Seen and examined; please see resident note for further historical information. I personally verified all hayward historical information and exam findings. Personally interpreted all imaging and diagnostics and reviewed appropriate consults. I reviewed all labs and vital signs as per resident note and EMR as documented. I agree with the above assessment and plan unless supplemented by myself in the following. 10 item review of systems completed and is negative aside from as discussed in the subjective data in my own/the resident documentation. VS, labs, imaging reviewed NAD, AAO, resting comfortably in bed. RRR s1/2 no mgr Normal muscle tone, moves all 5 extremities with normal apparent strength Neck is supple, trachea midline, no kyra LN Lungs CTAB with sym expansion NT ND +BS no kyra organomegaly CN2-12 wnl; no FND NC AT EOMI PERRLA Normal mood, appropriate behavior, euthymic affect No skin breakdown or rashes noted Assessment and plan: Patient presents with recurring anemia that is secondary to chronic disease with CKD 5/ESRD being present for which she is declined hemodialysis. Seen by nephrology and started on erythropoietin replacement. Negative FOBT and no bleeding. Will discuss with subspecialty services. If he is stable posttransfusion and all are in agreement he will be able to be taken back to his facility today with continued follow-up. He has declined dialysis again, follow-up electrolytes and fluid status closely as an outpatient and consider overall goals of care given his advanced age of 83 and advanced kidney disease. He can follow-up outpatient strongyloidiasis, CBC with differential, etc. etc. for the eosinophilia. Iron studies noted previously, B12 and folate levels within normal limits. *Seen by GI; they have opted for inpatient endoscopy; followup EGD results. Will determine dispo based on this. H/h stable, no bleeding. *EGD results discussed above; no active bleeding and continues to do well. Discussing with GI regarding DC. No renal contraindications. Tolerated meds well. Delineate need for home PPI. Full Code
[2019-04-19] MEDS: FLUoxetine HCL 20 MG CAPSULE PO SCH (12:18)
[2019-04-19] MEDS: DOCUSATE SODIUM 100 MG CAPSULE (FP) PO SCH (12:18)
[2019-04-19] MEDS: MULTIVITAMINS (DAILY MVI) TABLET (FP) PO SCH (12:18)
--- NOTE | 2019-04-19 15:09 | PN ---
Progress Note, Physician History of Present Illness: Pt seen and examined at bedside. He is awake and alert. he denies shortness of breath. - Current Medication List Current Medications: Active Medications Amlodipine Besylate (Norvasc -) 10 mg PO DAILY [facility] Last Admin: 04/19/19 09:56 Dose: 10 mg Atorvastatin Calcium (Lipitor -) 20 mg PO [facility] Last Admin: 04/18/19 22:10 Dose: 20 mg Docusate Sodium (Colace -) 200 mg PO DAILY [facility] Last Admin: 04/19/19 12:18 Dose: Not Given Fluoxetine HCl (Prozac -) 20 mg PO DAILY [facility] Last Admin: 04/19/19 12:18 Dose: Not Given Furosemide (Lasix Injection -) 40 mg IVPUSH DAILY [facility] Last Admin: 04/18/19 10:30 Dose: Not Given Gabapentin (Neurontin -) 300 mg PO TID [facility] Last Admin: 04/19/19 06:43 Dose: 300 mg Guaifenesin (Robitussin -) 10 ml PO Q6H PRN PRN Reason: COUGH Insulin Aspart (Novolog Vial Sliding Scale -) 1 vial SQ [facility]; Protocol Last Admin: 04/19/19 12:18 Dose: Not Given Insulin Detemir (Levemir Vial) 30 units SQ [facility] Last Admin: 04/18/19 22:12 Dose: Not Given Mometasone Furoate (Asmanex 220mcg -) 1 puff IH [facility] Last Admin: 04/18/19 23:16 Dose: 1 puff Multivitamins/Minerals/Vitamin C (Tab-A-Vit -) 1 tab PO DAILY [facility] Last Admin: 04/19/19 12:18 Dose: Not Given Sertraline HCl (Zoloft -) 150 mg PO [facility] Last Admin: 04/18/19 22:10 Dose: 150 mg Tamsulosin HCl (Flomax -) 0.4 mg PO [facility] Last Admin: 04/18/19 22:10 Dose: 0.4 mg - Objective Vital Signs: Vital Signs Temperature 98.0 F 04/19/19 10:00 Pulse Rate 67 04/19/19 10:00 Respiratory Rate 20 04/19/19 10:00 Blood Pressure 155/71 04/19/19 10:00 O2 Sat by Pulse Oximetry (%) 99 02/20/20 09:00 Constitutional: Yes: Calm Eyes: Yes: Conjunctiva Clear HENT: Yes: Atraumatic Neck: Yes: Supple Cardiovascular: Yes: S1, S2 Respiratory: Yes: CTA Bilaterally Gastrointestinal: Yes: Soft Genitourinary: Yes: WNL Musculoskeletal: Yes: WNL Edema: Yes Edema: RLE: 1+ Integumentary: Yes: Venous Stasis Changes Psychiatric: Yes: Oriented Labs: CBC, BMP 04/19/19 06:17 04/19/19 06:17 INR, PTT INR 0.98 (0.83-1.09) 04/17/19 05:30 Assessment/Plan Current Medications Generic Name Dose Route Start Last Admin Trade Name Freq PRN Reason Stop Dose Admin Amlodipine Besylate 10 mg 04/17/19 11:30 04/19/19 09:56 Norvasc - PO 10 mg DAILY NATHALIE Administration Atorvastatin Calcium 20 mg 04/17/19 22:00 04/18/19 22:10 Lipitor - PO 20 mg HS NATHALIE Administration Docusate Sodium 200 mg 04/17/19 10:00 04/19/19 12:18 Colace - PO Not Given DAILY NATHALIE Fluoxetine HCl 20 mg 04/17/19 10:00 04/19/19 12:18 Prozac - PO Not Given DAILY NATHALIE Furosemide 40 mg 04/18/19 00:45 04/18/19 10:30 Lasix Injection - IVPUSH Not Given DAILY NATHALIE Gabapentin 300 mg 04/17/19 06:00 04/19/19 06:43 Neurontin - PO 300 mg TID NATHALIE Administration Guaifenesin 10 ml 04/17/19 14:03 Robitussin - PO Q6H PRN COUGH Insulin Aspart 1 vial 04/17/19 07:00 04/19/19 12:18 Novolog Vial Sliding Scale - SQ Not Given ACHS [facility] Protocol Insulin Detemir 30 units 04/17/19 22:00 04/18/19 22:12 Levemir Vial SQ Not Given HS NATHALIE Mometasone Furoate 1 puff 04/17/19 22:00 04/18/19 23:16 Asmanex 220mcg - IH 1 puff HS NATHALIE Administration Multivitamins/Minerals/Vitamin C 1 tab 04/17/19 10:00 04/19/19 12:18 Tab-A-Vit - PO Not Given DAILY NATHALIE Sertraline HCl 150 mg 04/17/19 22:00 04/18/19 22:10 Zoloft - PO 150 mg HS NATHALIE Administration Tamsulosin HCl 0.4 mg 04/17/19 22:00 04/18/19 22:10 Flomax - PO 0.4 mg HS NATHALIE Administration Laboratory Tests 04/17/19 00:32 Iron 42 L TIBC 317 Iron Saturation 13 L Imrpession 1. ckd 2. htn 3. dm 4. anemia 5. 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
--- NOTE | 2019-04-19 15:23 | PN ---
Progress Note (short form) - Note Progress Note: Colonoscopy complete. Report left in the procedural section of the physical chart and will be scanned into oDesk.
[2019-04-19] MEDS: PANTOPRAZOLE 40 MG TABLET PO SCH (16:37)
--- NOTE | 2019-04-19 17:28 | PATH ---
Surgical Pathology Report Patient Name: LEDA RAMOS [facility]. Rec. #: [id number] /Age/Gender: 1935 (Age: 83) / M Account: [id number] Location: 4 W TELEMETRY U Taken: 04/18/2019 Received: 04/18/2019 Reported: 04/19/2019 Physicians: MD Talisha Conner MD Specimen(s) Received A: GASTRIC ANTRUM B: GASTRIC BODY C: GE JUNCTION Clinical History Anemia Postoperative diagnosis: Gastritis Final Diagnosis A. 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 IMMUNOHISTOCHEMICAL STAIN FOR H. PYLORI IS NEGATIVE. B. GASTRIC BODY, BIOPSY: GASTRIC BODY MUCOSA WITH MILD CHRONIC GASTRITIS. IMMUNOHISTOCHEMICAL STAIN FOR H. PYLORI IS NEGATIVE. C. 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 NO INTESTINAL METAPLASIA OR DYSPLASIA IDENTIFIED. SEE COMMENT. Comment: Part C, biopsy shows increased intraepithelial eosinophils focally >90 eosinophils/in one HPF and some eosinophilic microabscesses. Although findings are non-specific, and may be seen in severe gastrointestinal reflux disease; differential diagnoses include eosinophilic esophagitis, food allergy, drug hypersensitivity, hypereosinophilic syndrome, and connective tissue disease, among others. Suggest clinical and endoscopic correlation. Positive and negative controls (internal if applicable) show appropriate results. Electronically Signed Blanca Morris M.D. Gross Description A. Received in formalin, labeled "biopsy gastric antrum" are 2 de la cruz, irregular portions of soft tissue measuring 0.3 and 0.6 cm. in greatest dimension. The specimens are submitted in toto in one cassette. B. Received in formalin, labeled "biopsy gastric body" are 2 de la cruz, irregular portions of soft tissue measuring 0.4 and 0.5 cm. in greatest dimension. The specimens are submitted in toto in one cassette. C. Received in formalin, labeled "biopsy GE junction" are 5 de la cruz, irregular portions of soft tissue ranging from 0.1-0.5 cm. in greatest dimension. The specimens are submitted in toto in one cassette. 04/18/2019 saudi04/18/2019
--- NOTE | 2019-04-19 17:31 | PN ---
Physical Exam: SUBJECTIVE: Patient seen and examined. No acute events. OBJECTIVE: Vital Signs Period Temp Pulse Resp BP Sys/Macdonald Pulse Ox Last 24 Hr 97.8 F-98.0 F 66-83 17-20 92-159/43-77 98-99 GENERAL: The patient is awake, alert, and fully oriented, in no acute distress. LUNGS: Breath sounds equal, clear to auscultation bilaterally, no wheezes, no crackles, no accessory muscle use. HEART: Regular rate and rhythm, S1, S2 without murmur, rub or gallop. ABDOMEN: Soft, nontender, nondistended. EXTREMITIES: 2+ pulses, warm, well-perfused, no edema. 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 Normal speech, gait not observed. PSYCH: Normal mood, normal affect. Laboratory Results - last 24 hr 04/18/19 04/19/19 04/19/19 22:09 06:09 06:17 WBC RBC Hgb Hct MCV MCH MCHC RDW Plt Count MPV Absolute Neuts (auto) Neutrophils % Neutrophils % (Manual) Band Neutrophils % Lymphocytes % Lymphocytes % (Manual) Monocytes % Monocytes % (Manual) Eosinophils % Eosinophils % (Manual) Basophils % Basophils % (Manual) Myelocytes % (Man) Promyelocytes % (Man) Blast Cells % (Manual) Nucleated RBC % Metamyelocytes Hypochromia Platelet Estimate Polychromasia Poikilocytosis Basophilic Stippling Anisocytosis Microcytosis Macrocytosis Sodium 142 Potassium 4.1 Chloride 111 H Carbon Dioxide 22 Anion Gap 9 BUN 51.9 H Creatinine 4.4 H Est GFR (CKD-EPI)AfAm 13.39 Est GFR (CKD-EPI)NonAf 11.55 POC Glucometer 116 129 Random Glucose 128 H Calcium 7.6 L Total Bilirubin 0.1 L AST 15 ALT 15 Alkaline Phosphatase 133 H Total Protein 5.1 L Albumin 2.6 L 04/19/19 04/19/19 04/19/19 06:17 12:14 17:11 WBC 9.3 RBC 2.54 L Hgb 7.9 L Hct 23.3 L MCV 91.6 MCH 31.1 MCHC 34.0 RDW 14.9 Plt Count 205 MPV 7.7 Absolute Neuts (auto) 6.6 Neutrophils % 70.5 Neutrophils % (Manual) 77.0 Band Neutrophils % 0.0 Lymphocytes % 15.6 D Lymphocytes % (Manual) 13.0 Monocytes % 9.2 Monocytes % (Manual) 7 Eosinophils % 4.0 D Eosinophils % (Manual) 3.0 Basophils % 0.7 Basophils % (Manual) 0.0 Myelocytes % (Man) 0 D Promyelocytes % (Man) 0 Blast Cells % (Manual) 0 Nucleated RBC % 1 H Metamyelocytes 0 D Hypochromia 0 Platelet Estimate Normal Polychromasia 1+ Poikilocytosis 0 Basophilic Stippling 1+ Anisocytosis 1+ Microcytosis 1+ Macrocytosis 0 Sodium Potassium Chloride Carbon Dioxide Anion Gap BUN Creatinine Est GFR (CKD-EPI)AfAm Est GFR (CKD-EPI)NonAf POC Glucometer 122 167 Random Glucose Calcium Total Bilirubin AST ALT Alkaline Phosphatase Total Protein Albumin Active Medications Generic Name Dose Route Start Last Admin Trade Name Freq PRN Reason Stop Dose Admin Amlodipine Besylate 10 mg 04/17/19 11:30 04/19/19 09:56 Norvasc - PO 10 mg DAILY NATHALIE Administration Atorvastatin Calcium 20 mg 04/17/19 22:00 04/18/19 22:10 Lipitor - PO 20 mg HS NATHALIE Administration Docusate Sodium 200 mg 04/17/19 10:00 04/19/19 12:18 Colace - PO Not Given DAILY [facility] Ferrous Sulfate 325 mg 04/19/19 22:00 Feosol - PO BID [facility] Fluoxetine HCl 20 mg 04/17/19 10:00 04/19/19 12:18 Prozac - PO Not Given DAILY NATHALIE Furosemide 40 mg 04/18/19 00:45 04/18/19 10:30 Lasix Injection - IVPUSH Not Given DAILY [facility] Gabapentin 300 mg 04/17/19 06:00 04/19/19 06:43 Neurontin - PO 300 mg TID NATHALIE Administration Guaifenesin 10 ml 04/17/19 14:03 Robitussin - PO Q6H PRN COUGH Insulin Aspart 1 vial 04/17/19 07:00 04/19/19 12:18 Novolog Vial Sliding Scale - SQ Not Given ACHS [facility] Protocol Insulin Detemir 30 units 04/17/19 22:00 04/18/19 22:12 Levemir Vial SQ Not Given HS [facility] Mometasone Furoate 1 puff 04/17/19 22:00 04/18/19 23:16 Asmanex 220mcg - IH 1 puff HS NATHALIE Administration Multivitamins/Minerals/Vitamin C 1 tab 04/17/19 10:00 04/19/19 12:18 Tab-A-Vit - PO Not Given DAILY NATHALIE Pantoprazole Sodium 40 mg 04/19/19 15:15 04/19/19 16:37 Protonix - PO 40 mg DAILY NATHALIE Administration Sertraline HCl 150 mg 04/17/19 22:00 04/18/19 22:10 Zoloft - PO 150 mg HS NATHALIE Administration Tamsulosin HCl 0.4 mg 04/17/19 22:00 04/18/19 22:10 Flomax - PO 0.4 mg HS NATHALIE Administration ASSESSMENT/PLAN: This 83 y/o M PMH HTN, HLD, DM, CKD, PVD, diverticulosis who presents today with asymptomatic anemia. 1) Anemia -Anemia of chronic disease vs UGIB vs iron deficiency anemia -Hgb of 7.1, previously 9.5 in August 2018 now dropped Hb-7.7 -Normocytic, normochromic anemia -Negative fobt, no hemorrhoids, colonoscopy in June 2018 negative for malignancies with repeat in 3 years. -Prior colonoscopy showed diverticulosis, colonsocopy today showing mod diverticulosis in sigmoid colon, lipomatous IC valve, pacth of vascular ectasias that were coagulated in cecum, and medium internal hemorrhoids. Will avoid nsaids, monitor H/H overnight, recommend heme eval. clear liquid diet -IV 40 protonix started -Holding ASA, amlodipine, and lasix -Iron Studies showing AOCD, B12/Folate normal. -Nephrology consulted and started Epo (Procrit 20,000) 2) Hx of HTN -Patient normotensive after initial BP, will continue to monitor and hold home amlodipine -Monitoring BP as it was trending down 3) Hx of CKD ? acute on chronic picture -BUN near baseline, Creatinine of 4.7 today, -Holding home lasix, epo normal -Nephrology consulted- Dr. Haji - He has declined dialysis again, follow-up electrolytes and fluid status closely as an outpatient and consider overall goals of care given his advanced age of 83 and advanced kidney disease. He can follow-up outpatient strongyloidiasis, CBC with differential, etc. for the eosinophilia. 4) Hx of IDDM -Insulin siding scale -BGM ACHS - levemir 30 HS -Diabetic neuropathy-continue Gabapentin 5) Hx of PVD -Holding ASA until discussion with GI F:off fluids E: Monitor CMP N: NPO after midnight for EGD tm and then DC if negative DVT: SCD Dispo: Admit to telemetry monitoring Visit type - Emergency Visit Emergency Visit: Yes ED Registration Date: 04/16/19 Care time: The patient presented to the Emergency Department on the above date and was hospitalized for further evaluation of their emergent condition. - New Patient This patient is new to me today: No - Critical Care Critical Care patient: No - Discharge Referral Referred to [facility] No ATTENDING PHYSICIAN STATEMENT I saw and evaluated the patient. I reviewed the resident's note and discussed the case with the resident. I agree with the resident's findings and plan as documented. SUBJECTIVE: OBJECTIVE: ASSESSMENT AND PLAN:
[2019-04-19] MEDS: FERROUS SO4 325 MG TABLET (FP) PO SCH (21:49)
[2019-04-19] MEDS: ATORVASTATIN CA 20 MG TABLET (FP) PO SCH (21:49)
[2019-04-19] MEDS: SERTRALINE HCL 50 MG TABLET (FP) PO SCH (21:50)
[2019-04-19] MEDS: TAMSULOSIN HCL 0.4 MG CAP PO SCH (21:50)
[2019-04-19] MEDS: MOMETASONE FUROATE 220 MCG/IH INHALER IH SCH (21:51)
[2019-04-19] MEDS: INSULIN (LEVEMIR) 100 UNITS/ML UNITS SQ SCH (21:57)
[2019-04-20] MEDS: INSULIN SLIDING SCALE (NOVOLOG) 1 VIAL SQ SCH (06:49)
[2019-04-20] MEDS: GABAPENTIN 300 MG CAPSULE PO SCH ×2 (06:52→13:30)
[2019-04-20 07:32] LABS: BASO % 0.7 % (0-2.0); EOS % 2.3 % (0-4.5); HEMOGLOBIN 8.3 GM/dL (11.7-16.9); LYMPH % 12.6 % (8-40); MCH 30.7 pg (25.7-33.7); MCHC 33.4 g/dl (32.0-35.9); MEAN CELL VOLUME 91.9 fl (80-96); MEAN PLT VOLUME 7.5 fl (7.5-11.1); MONO % 8.5 % (3.8-10.2); NEUT % 75.9 % (42.8-82.8); PLATELET COUNT 232 K/MM3 (134-434); RBC 2.71 M/mm3 (4.00-5.60); RDW 14.7 % (11.9-15.9); WHITE BLOOD COUNT 11.1 K/mm3 (4.0-10.0)
[2019-04-20 08:02] LABS: ALBUMIN 2.6 g/dl (3.4-5.0); BILIRUBIN,TOTAL 0.3 mg/dL (0.2-1); BLOOD UREA NITROGEN 46.2 mg/dL (7-18); CALCIUM 7.9 mg/dL (8.5-10.1); CREATININE 4.2 mg/dL (0.55-1.3); POTASSIUM 3.9 mmol/L (3.5-5.1); TOT PROT 5.6 g/dl (6.4-8.2)
--- NOTE | 2019-04-20 10:01 | PN ---
Progress Note, Physician Chief Complaint: The patient seen and examined in his room. Seems lethargic. Her GI procedure but the reports are pending. No overt bleeding. Reports feeling well overall. Patient received PRBC transfusion History of Present Illness: 83yo M with PMH of HTN, HLD, DM, AdvancedCKD, anemia sent by [facility] for low hemoglobin. Patient had routine blood work performed and was told that his blood count is very low. No dizziness, chest pain, or shortness of breath. With generalized weakness, though unsure if this is different from baseline. Denies hematemesis. Has had black stools but believes it is because of his medications. States he is on ASA. No anticoagulant therapy. - Current Medication List Current Medications: Active Medications Amlodipine Besylate (Norvasc -) 10 mg PO DAILY [facility] Last Admin: 04/19/19 09:56 Dose: 10 mg Atorvastatin Calcium (Lipitor -) 20 mg PO [facility] Last Admin: 04/19/19 21:49 Dose: 20 mg Docusate Sodium (Colace -) 200 mg PO DAILY [facility] Last Admin: 04/19/19 12:18 Dose: Not Given Ferrous Sulfate (Feosol -) 325 mg PO BID [facility] Last Admin: 04/19/19 21:49 Dose: 325 mg Fluoxetine HCl (Prozac -) 20 mg PO DAILY [facility] Last Admin: 04/19/19 12:18 Dose: Not Given Furosemide (Lasix Injection -) 40 mg IVPUSH DAILY [facility] Last Admin: 04/18/19 10:30 Dose: Not Given Gabapentin (Neurontin -) 300 mg PO TID [facility] Last Admin: 04/20/19 06:52 Dose: 300 mg Guaifenesin (Robitussin -) 10 ml PO Q6H PRN PRN Reason: COUGH Insulin Aspart (Novolog Vial Sliding Scale -) 1 vial SQ [facility]; Protocol Last Admin: 04/20/19 06:49 Dose: Not Given Insulin Detemir (Levemir Vial) 30 units SQ [facility] Last Admin: 04/19/19 21:57 Dose: 30 units Mometasone Furoate (Asmanex 220mcg -) 1 puff IH [facility] Last Admin: 04/19/19 21:51 Dose: 1 puff Multivitamins/Minerals/Vitamin C (Tab-A-Vit -) 1 tab PO DAILY [facility] Last Admin: 04/19/19 12:18 Dose: Not Given Pantoprazole Sodium (Protonix -) 40 mg PO DAILY [facility] Last Admin: 04/19/19 16:37 Dose: 40 mg Sertraline HCl (Zoloft -) 150 mg PO [facility] Last Admin: 04/19/19 21:50 Dose: 150 mg Tamsulosin HCl (Flomax -) 0.4 mg PO [facility] Last Admin: 04/19/19 21:50 Dose: 0.4 mg - Objective Vital Signs: Vital Signs Temperature 97.7 F 04/20/19 01:50 Pulse Rate 80 04/20/19 05:00 Respiratory Rate 20 04/20/19 05:00 Blood Pressure 95/55 L 04/20/19 05:00 O2 Sat by Pulse Oximetry (%) 98 04/19/19 15:45 Constitutional: Yes: No Distress, Pallor Eyes: Yes: Conjunctiva Clear HENT: Yes: Normocephalic Neck: Yes: Trachea Midline Cardiovascular: Yes: Regular Rate and Rhythm, S1, S2 Respiratory: Yes: CTA Bilaterally Gastrointestinal: Yes: Normal Bowel Sounds, Soft. No: Tenderness Genitourinary: No: Bladder Distention, CVA Tenderness - Left, CVA Tenderness - Right Musculoskeletal: Yes: Back Pain Extremities: Yes: Amputation. No: Calf Tenderness Neurological: Yes: Oriented Labs: CBC, BMP 04/20/19 06:49 04/20/19 06:49 INR, PTT INR 0.98 (0.83-1.09) 04/17/19 05:30 Problem List - Problems (1) CKD (chronic kidney disease) Code(s): N18.9 - CHRONIC KIDNEY DISEASE, UNSPECIFIED (2) Anemia Code(s): D64.9 - ANEMIA, UNSPECIFIED Qualifiers: Anemia type: unspecified type Qualified Code(s): D64.9 - Anemia, unspecified Assessment/Plan 83yo M with PMH of HTN, HLD, DM, CKD, anemia sent by [facility] for low hemoglobin. The patient has advanced CKD, Stage. I have discussed MANAGER LEAN in the past, but the patient would not consider it. His anemia is to a large extent related to his advanced Kidney failure. But need to rule out other etiologic factors, especially blood loss. Will start the patient on a regimen of Procrit. Will review EGD findings when available. Monitor the renal functions with you. Thanks again. Cora Sharpe MD
[2019-04-20] MEDS: FUROSEMIDE 40 MG/4 ML INJECTABLE VIAL IVPUSH SCH (10:24)
[2019-04-20] MEDS: DOCUSATE SODIUM 100 MG CAPSULE (FP) PO SCH (10:26)
[2019-04-20] MEDS: amLODIPine BESYLATE 10 MG TABLET (FP) PO SCH (10:26)
[2019-04-20] MEDS: FERROUS SO4 325 MG TABLET (FP) PO SCH (10:28)
[2019-04-20] MEDS: FLUoxetine HCL 20 MG CAPSULE PO SCH (10:28)
[2019-04-20] MEDS: MULTIVITAMINS (DAILY MVI) TABLET (FP) PO SCH (10:28)
[2019-04-20] MEDS: PANTOPRAZOLE 40 MG TABLET PO SCH (10:28)
[2019-04-20 10:40] LABS: ANISOCYTOSIS 2+; MACROCYTOSIS 1+; PLATELET ESTIMATE NORMAL
[2019-04-20] MEDS ORDERED: EPOETIN ALFA 10,000 UNIT/1 ML VIAL SQ ONE (12:27)
--- NOTE | 2019-04-20 13:28 | DS ---
Physical Exam: SUBJECTIVE: Patient seen and examined. No acute events or signs of bleeding. Denies any n/v/f/c/abd pain/bowel/bladder complaints. OBJECTIVE: Vital Signs Period Temp Pulse Resp BP Sys/Macdonald Pulse Ox Last 24 Hr 97.4 F-98.1 F 66-83 17-20 92-153/43-89 98-99 PHYSICAL EXAM GENERAL: The patient is awake, alert, and fully oriented, in no acute distress. LUNGS: Breath sounds equal, clear to auscultation bilaterally, no wheezes, no crackles, no accessory muscle use. HEART: Regular rate and rhythm, S1, S2 without murmur, rub or gallop. ABDOMEN: Soft, nontender, nondistended, normoactive bowel sounds, no guarding, no rebound, no hepatosplenomegaly, no masses. EXTREMITIES: 2+ pulses, warm, well-perfused, no edema. LABS Laboratory Results - last 24 hr 04/16/19 04/19/19 04/19/19 21:16 17:11 20:30 WBC RBC Hgb Hct MCV MCH MCHC RDW Plt Count MPV Absolute Neuts (auto) Neutrophils % Neutrophils % (Manual) Band Neutrophils % Lymphocytes % Lymphocytes % (Manual) Monocytes % Monocytes % (Manual) Eosinophils % Eosinophils % (Manual) Basophils % Basophils % (Manual) Myelocytes % (Man) Promyelocytes % (Man) Blast Cells % (Manual) Nucleated RBC % Metamyelocytes Hypochromia Platelet Estimate Polychromasia Poikilocytosis Anisocytosis Microcytosis Macrocytosis Sodium Potassium Chloride Carbon Dioxide Anion Gap BUN Creatinine Est GFR (CKD-EPI)AfAm Est GFR (CKD-EPI)NonAf POC Glucometer 167 238 Random Glucose Calcium Total Bilirubin AST ALT Alkaline Phosphatase Total Protein Albumin Blood Type O POSITIVE Antibody Screen Negative Crossmatch See Detail 04/20/19 04/20/19 04/20/19 06:28 06:49 06:49 WBC 11.1 H RBC 2.71 L Hgb 8.3 L Hct 25.0 L MCV 91.9 MCH 30.7 MCHC 33.4 RDW 14.7 Plt Count 232 MPV 7.5 Absolute Neuts (auto) 8.4 H Neutrophils % 75.9 Neutrophils % (Manual) 77.0 Band Neutrophils % 0.0 Lymphocytes % 12.6 Lymphocytes % (Manual) 8.0 D Monocytes % 8.5 Monocytes % (Manual) 4 Eosinophils % 2.3 Eosinophils % (Manual) 5.0 H Basophils % 0.7 Basophils % (Manual) 0.0 Myelocytes % (Man) 2 D Promyelocytes % (Man) 0 Blast Cells % (Manual) 0 Nucleated RBC % 0 Metamyelocytes 1 D Hypochromia 0 Platelet Estimate Normal Polychromasia 2+ Poikilocytosis 0 Anisocytosis 2+ Microcytosis 1+ Macrocytosis 1+ Sodium 138 Potassium 3.9 Chloride 115 H Carbon Dioxide 22 Anion Gap 1 L BUN 46.2 H Creatinine 4.2 H Est GFR (CKD-EPI)AfAm 14.17 Est GFR (CKD-EPI)NonAf 12.22 POC Glucometer 92 Random Glucose 104 Calcium 7.9 L Total Bilirubin 0.3 AST 13 L ALT 15 Alkaline Phosphatase 147 H Total Protein 5.6 L Albumin 2.6 L Blood Type Antibody Screen Crossmatch HOSPITAL COURSE: Date of Admission:04/16/19 EGD: revealing atrophic appearing stomach and patchy erythema in duodenal bulb. Irregular z line with small islands noted. Biopsies taken. No obvious ulcer, avms or evidence of bleeding Colonoscopy: showing mod diverticulosis in sigmoid colon, lipomatous IC valve, pacth of vascular ectasias that were coagulated in cecum, and medium internal hemorrhoids. 83yo M with PMH of HTN, HLD, DM, AdvancedCKD, anemia sent by [facility] for low hemoglobin. Patient had routine blood work performed and was told that his blood count is very low. Pt underwent EGD and colonoscopy here and did not find any acute bleed. Likely the anemia is related to his ESRD. He was started on procrit regimen per renals recs. He will follow up with hematology as an o/p to further w/u his anemia. Pt was told to dc any NSAIDS x 10 days, increase his protonix to 40 daily, and increase his fiber intake. Pt will f/u with [facility] regarding the pathology report of the EGD and colonoscopy. Pt informed to return to the ER if he has any worsening of his current symptoms or signs of bleeding. He will follow up with his kidney doctor as well. He is continuing all his other home medications as prescribed. Date of Discharge: 04/20/19 Minutes to complete discharge: 35 Discharge Summary Problems reviewed: Yes Reason For Visit: ANEMIA Current Active Problems Anemia (Chronic) CKD (chronic kidney disease) (Chronic) Condition: Guarded - Instructions Diet, Activity, Other Instructions: You were admitted for low blood counts (anemia). You were seen by a kidney specialist (Dr. Hart) who helped improve your kidney function. You were seen by a stomach doctor (Dr. Mao) who did and imaging study of your upper and lower intestines (endoscopy and colonoscopy) who found a small bleed that was stopped. We are recommending you avoid any nsaids (aleve,ibuprofin, aspirin, motrin etc) for at least 10 days and that you start taking Omeprazole 40 mg by mouth once daily to decrease your acid production. You should eat a high fiber diet: beans, nuts, grains, bananas, broccoli, alirio greens, spinach, lentils. You should follow up with your primary care physician after you leave here in 1 week to discuss your overall health issues. You should follow up with your kidney specialist (Dr. Baptiste) in 1 week to assess your kidney status and function. You should follow up with a blend technician in 1 week to assess your anemia. If you do not have one, you may make an appointment to see Dr. Colbert/Dr. Gray as an outpatient. You should continue your home medications as prescribed. You should return to the emergency room if you are continuing to have signs of low blood count or: chest pain, severe shortness of breath, abdominal pain, bowel/bladder complaints. Referrals: Андрей Mao DO [Staff Physician] - Marina Garcia MD [Staff Physician] - Deshawn Ayala MD [Primary Care Provider] - Cory Colbert MD [Staff Physician] - Ld Baptiste MD [Staff Physician] - 1 Week Disposition: HOME - Home Medications Comprehensive Discharge Medication List: Ambulatory Orders Amlodipine Besylate [Norvasc -] 10 mg PO DAILY #30 tablet 04/21/18 Aspirin Coated [Ecotrin -] 81 mg PO DAILY 04/21/18 Atorvastatin Ca [Lipitor] 20 mg PO HS 04/21/18 Docusate Sodium 200 mg PO DAILY 04/21/18 Ergocalciferol (Vitamin D2) [Vitamin D2] 50,000 unit PO WEEKLY 04/21/18 Ferrous Gluconate [Ferate] 27 mg PO DAILY 04/21/18 Fluoxetine HCl 20 mg PO DAILY 04/21/18 Fluticasone Propionate [Flovent Diskus] 50 mcg IH BID 04/21/18 Furosemide 80 mg PO DAILY 04/21/18 Gabapentin 300 mg PO TID 04/21/18 Glimepiride 2 mg PO DAILY 04/21/18 Linagliptin [Tradjenta] 5 mg PO DAILY 04/21/18 Sertraline HCl 150 mg PO HS 04/21/18 Tamsulosin HCl 0.4 mg PO HS 04/21/18 Guaifenesin [Siltussin SA] 200 mg PO PRN PRN 07/25/18 Multivitamins [Multivit ([facility] Formulary)] 1 tab PO DAILY 07/25/18 Sildenafil Citrate [Viagra] 50 mg PO PRN PRN 07/25/18 Silver Sulfadiazine [Ssd] 400 gm TP DAILY 07/25/18 Omeprazole 40 mg PO DAILY #30 tab. 04/20/19 This patient is new to me today: No Emergency Visit: Yes ED Registration Date: 04/16/19 Care time: The patient presented to the Emergency Department on the above date and was hospitalized for further evaluation of their emergent condition. Critical Care patient: No - Discharge Referral Referred to [facility] No ATTENDING PHYSICIAN STATEMENT I saw and evaluated the patient. I reviewed the resident's note and discussed the case with the resident. I agree with the resident's findings and plan as documented. SUBJECTIVE: OBJECTIVE: ASSESSMENT AND PLAN:
[2019-04-20 13:40] VITALS: BP 105/62; PULSE 82; TEMP 98
--- NOTE | 2019-04-20 17:47 | PN ---
Teaching Attending Note Name of Resident: Charlie Samano ATTENDING PHYSICIAN STATEMENT I saw and evaluated the patient. I reviewed the resident's note and discussed the case with the resident. I agree with the resident's findings and plan as documented. Seen and examined; please see resident note for further historical information. I personally verified all hayward historical information and exam findings. Personally interpreted all imaging and diagnostics and reviewed appropriate consults. I reviewed all labs and vital signs as per resident note and EMR as documented. I agree with the above assessment and plan unless supplemented by myself in the following. Patient is a 83-year-old male with a history of hypertension hyperlipidemia diabetes CKD who is declined hemodialysis presented from assisted living with low hemoglobin status post transfusion. Negative FOBT. Gastroenterology chose to complete EGD and inpatient colonoscopy. No active bleeding. His anemia is likely related to his kidney failure and chronic disease. Colonoscopy and EGD results noted. Tolerating diet. EGD and colonoscopy report reviewed, in summation moderate diverticulitis with lipomatous intra-cecal valve and vascular ectasias alongside hemorrhoids, patchy erythema in the duodenal bulb with irregular Z line and EGD. Follow-up pathology with GI/primary care Patient presented for anemia, no acute bleeding noted. Likely secondary to renal source/chronic disease. Negative FOBT. Gastroenterology completed 2 endoscopies on the patient. Seen by his vocational trainer who is cleared him for discharge, gastroenterology states he may follow-up outpatient. He continues to decline dialysis. He is at high risk for bounce back secondary to this. VS, labs, imaging reviewed NAD, AAO, resting comfortably in bed. RRR s1/2 no mgr Normal muscle tone, moves all 5 extremities with normal apparent strength Neck is supple, trachea midline, no kyra LN Lungs CTAB with sym expansion NT ND +BS no kyra organomegaly CN2-12 wnl; no FND NC AT EOMI PERRLA Normal mood, appropriate behavior, euthymic affect No skin breakdown or rashes noted Agree with DC instructions per resident note.
== END 2019-04-20 19:25 | disposition home or self-care (01) | DRG 811 ==
LOC: JER 20:24 → JERBED 21:54 → J4W 04-17 23:36
PROVIDERS: ADMIT Internal Medicine; ATTEND Internal Medicine
PROC: 30233N1 Transfusion of Nonautologous Red Blood Cells into Peripheral Vein, Percutaneous Approach (ICD-10-PCS; 2019-04-16)
PROC: 0DB68ZX Excision of Stomach, Via Natural or Artificial Opening Endoscopic, Diagnostic (ICD-10-PCS; 2019-04-18)
PROC: 0DB58ZX Excision of Esophagus, Via Natural or Artificial Opening Endoscopic, Diagnostic (ICD-10-PCS; principal; 2019-04-18 11:00)
PROC: 0W3P8ZZ Control Bleeding in Gastrointestinal Tract, Via Natural or Artificial Opening Endoscopic (ICD-10-PCS; 2019-04-19)
DX: D50.9 Iron deficiency anemia, unspecified (principal); N18.6 End stage renal disease; N17.9 Acute kidney failure, unspecified; I12.0 Hypertensive chronic kidney disease with stage 5 chronic kidney disease or end stage renal disease; K55.20 Angiodysplasia of colon without hemorrhage; D17.9 Benign lipomatous neoplasm, unspecified; E11.22 Type 2 diabetes mellitus with diabetic chronic kidney disease; D63.1 Anemia in chronic kidney disease; K57.30 Diverticulosis of large intestine without perforation or abscess without bleeding; E11.40 Type 2 diabetes mellitus with diabetic neuropathy, unspecified; K64.8 Other hemorrhoids; E78.5 Hyperlipidemia, unspecified; K29.50 Unspecified chronic gastritis without bleeding; K44.9 Diaphragmatic hernia without obstruction or gangrene
CPT/HCPCS: 36415; 36430; 36511; 71045-TC-FY; 80053; 82272; 82607; 82668; 82728; 82746; 82962; 82977; 83540; 83550; 85025; 85044; 85610; 86850; 86900; 86901; 86922; 93005; 93010; 93306-TC; 99285-25; J0885; J7030; P9038; P9058